=== PATIENT | male | born 1990 | race American Indian/Alaskan Native ===

== ENCOUNTER 2016-09-20 09:09 | Outpatient (CLI) | payer OTHER ==
[2016-09-20 09:22] LABS: Hematocrit 23.4 % (35.5-45.6); Hemoglobin 8.5 gm/dl (11.8-15.2)
== END 2016-09-20 09:10 | disposition home or self-care (01) ==
LOC: LAB 09:09
PROVIDERS: ATTEND Internal Medicine
DX: D57.1 Sickle-cell disease without crisis (principal)
CPT/HCPCS: 36415; 85014; 85018

== ENCOUNTER 2017-01-25 04:23 | Inpatient (IN) | payer MEDICAID, OTHER ==
[2017-01-25] MEDS ORDERED: D5NS 0.2% 1,000 ML IV SCH (06:00)
[2017-01-25] MEDS ORDERED: DUONEB 0.5 MG-3 MG/3 ML SOLN IH ONE (06:04)
[2017-01-25 06:18] LABS: Hematocrit 25.5 % (35.5-45.6); Hemoglobin 9.1 gm/dl (11.8-15.2); Mean Corpuscular HGB Conc 36 % (32-34); Mean Corpuscular Hemoglobin 32 pg (28-32); Mean Corpuscular Volume 91 fl (84-94); Platelet Count 272 K/mm3 (140-440); Reticulocyte % 16.59 % (0.78-2.58); White Blood Count 12.9 K/mm3 (4.5-11.0)
[2017-01-25 06:19] LABS: Red Cell Distribution Width 28.7 % (13.2-15.2)
[2017-01-25 06:27] LABS: Anion Gap 19 mmol/L; BUN/Creatinine Ratio 11.66; Blood Urea Nitrogen 7 mg/dL (9-20); Calcium 8.9 mg/dL (8.4-10.2); Carbon Dioxide 20 mmol/L (22-30); Chloride 103.6 mmol/L (98-107); Glucose 96 mg/dL (75-100); Potassium 4.8 mmol/L (3.6-5.0); Sodium 138 mmol/L (137-145)
[2017-01-25 06:56] LABS: Basophils % (Manual) 0 % (0.0-1.8); Blastocytes % (Manual) 0 %; Sickle Cells 3+
[2017-01-25 06:57] LABS: Polychromasia 1+; Target Cells 1+
[2017-01-25 06:58] LABS: Diff Status Complete; Platelet Estimate Consistent w Auto; Spherocytes Few; Stomatocytes 1+
[2017-01-25] MEDS ORDERED: MORPHINE IV ONE (07:10)
--- NOTE | 2017-01-25 07:22 | Emergency Department Report ---
HPI - General Chief Complaint: Sickle Cell Crisis Time Seen by Provider: 01/25/17 07:06 - HPI HPI: This is a 26-year-old Afro-[place] male who presents to the emergency department from home with a complaint of midsternal chest pain and neck pain has been going on since about 3 PM yesterday. It is associated with some occasional shortness of breath but he denies any fever, nausea, vomiting or diaphoresis. Patient says it is similar to previous sickle cell pain crisis. 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 He is on folic acid and took a Alyssa aspirin for his discomfort without any relief. No recent travel or sick contacts at home. 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 - Surgical History Past Surgical History?: No Hx Pacemaker: No Hx Internal Defibrillator: No - Social History Smoking Status: Never Smoker - Medications Home Medications: Home Medications Medication Instructions Recorded Confirmed Last Taken Type Ibuprofen [Motrin 800 MG tab] 800 mg PO TID PRN 07/14/13 01/25/17 08/19/15 History Folic Acid [Folvite] 1 mg PO QDAY #30 tablet 04/30/16 01/25/17 1 Day Ago Rx ED Review of Systems ROS: Stated complaint: SICKLE CELL PAIN Other details as noted in HPI Comment: All other systems reviewed and negative Constitutional: denies: chills, fever Eyes: denies: eye pain, eye discharge, vision change ENT: denies: ear pain, throat pain Respiratory: shortness of breath. denies: cough Cardiovascular: chest pain. denies: palpitations Gastrointestinal: denies: abdominal pain, nausea, diarrhea Genitourinary: denies: urgency, dysuria Musculoskeletal: arthralgia, myalgia. denies: back pain Skin: denies: rash, lesions Neurological: denies: headache, weakness, paresthesias Physical Exam - Physical Exam Vital Signs: Vital Signs 01/25/17 01/25/17 01/25/17 05:13 06:05 06:11 Temperature 98.9 F Pulse Rate 94 H Pulse Rate [ 86 Right Middle Lobe] Respiratory 18 24 Rate Respiratory 18 Rate [Right Middle Lobe] Blood Pressure 148/105 Blood Pressure [Left] O2 Sat by Pulse 100 93 Oximetry 01/25/17 01/25/17 01/25/17 06:46 06:50 06:59 Temperature Pulse Rate 87 89 92 H Pulse Rate [ Right Middle Lobe] Respiratory 14 25 H 22 Rate Respiratory Rate [Right Middle Lobe] Blood Pressure 153/84 Blood Pressure 153/84 [Left] O2 Sat by Pulse 97 98 98 Oximetry Physical Exam: GENERAL: The patient is well-developed well-nourished. Patient appears uncomfortable. HEENT: Normocephalic. Atraumatic. Extraocular motions are intact. Patient has moist mucous membranes. Pupils equal reactive to light bilaterally. NECK: Supple. Trachea is midline. CHEST/LUNGS: Clear to auscultation. There is no respiratory distress noted. HEART/CARDIOVASCULAR: Regular. There is no tachycardia. There is no gallop rub or murmur. ABDOMEN: Abdomen is soft, nontender. Patient has normal bowel sounds. There is no abdominal distention. SKIN: Skin is warm and dry. NEURO: The patient is awake, alert, and oriented. The patient is cooperative. The patient has no focal neurologic deficits. The patient has normal speech. MUSCULOSKELETAL: There is no tenderness or deformity. There is no limitation range of motion. There is no evidence of acute injury. ED Course Vital Signs 01/25/17 01/25/17 01/25/17 05:13 06:05 06:11 Temperature 98.9 F Pulse Rate 94 H Pulse Rate [ 86 Right Middle Lobe] Respiratory 18 24 Rate Respiratory 18 Rate [Right Middle Lobe] Blood Pressure 148/105 Blood Pressure [Left] O2 Sat by Pulse 100 93 Oximetry 01/25/17 01/25/17 01/25/17 06:46 06:50 06:59 Temperature Pulse Rate 87 89 92 H Pulse Rate [ Right Middle Lobe] Respiratory 14 25 H 22 Rate Respiratory Rate [Right Middle Lobe] Blood Pressure 153/84 Blood Pressure 153/84 [Left] O2 Sat by Pulse 97 98 98 Oximetry ED Medical Decision Making - Lab Data Result diagrams: 01/25/17 05:23 01/25/17 05:23 - EKG Data -: EKG Interpreted by Id EKG shows normal: sinus rhythm, axis, intervals, QRS complexes, ST-T waves (T- wave inversion to the lateral leads V5 and V6) Rate: normal - EKG Data When compared to previous EKG there are: previous EKG unavailable Interpretation: other (T-wave inversion to the lateral leads V5 and V6) - Radiology Data Radiology results: report reviewed, image reviewed interpreted by me: Chest x-ray did not show any acute process. Heart is normal shape and size. No effusions. No pneumothorax. No signs of pneumonia seen. CT angiography of the chest does not show any pulmonary embolism or any other acute process. - Medical Decision Making 26-year-old male with sickle cell anemia presents with chest pain and neck pain that he feels is consistent with previous pain crisis. EKG does not show any signs of ST elevation GA or dysrhythmia. Patient so far had a negative troponin. He did have a quite elevated d-dimer so a CT angiography of the chest was done that did not show any pulmonary embolism or acute process. Patient is given some IV fluid and a few rounds of pain medication and is feeling improved but his chest pain has not resolved. On top of that, the patient appears to display some hypoxia going down into the low 90s or high 80s. He was given some oxygen via nasal cannula which did help. As there are no infiltrates on chest x-ray, the patient does not appear to have a chest crisis. However he will need admission for further evaluation and treatment has been accepted for admission by the hospitalist, Dr Baptiste. - Differential Diagnosis sickle cell pain crisis, chest crisis, pneumonia, GA, CHF, costochondritis Critical Care Time: No Critical care attestation.: If time is entered above; I have spent that time in minutes in the direct care of this critically ill patient, excluding procedure time. ED Disposition Clinical Impression: Sickle cell pain crisis Chest pain Qualifiers: Chest pain type: chest pain on breathing Qualified Code(s): R07.1 - Chest pain on breathing Disposition: OP ADMITTED IP TO THIS HOSP Is pt being admited?: Yes Does the pt Need Aspirin: Yes Condition: Stable Time of Disposition: 12:19
[2017-01-25] MEDS ORDERED: DILAUDID IV ONE (08:01)
[2017-01-25] MEDS ORDERED: NACL ONE (08:08)
--- NOTE | 2017-01-25 08:53 | Cat Scan Report ---
CTA CHEST: History: Chest pain, elevated d-dimer. Technique: Helical CT following IV contrast. Pulmonary embolus protocol. Sagittal and coronal reformatted images. Rotational MIP images. Findings: Contrast bolus is slightly limited. There is pleural calcification of the distal, small pulmonary arteries. Having said that, no pulmonary arterial filling defect is identified. There is certainly no large central pulmonary embolus. Mild cardiomegaly is evident. There is mild pulmonary venous congestion with mild cephalization of pulmonary flow. No evidence for pleural effusion, infiltrate or pneumothorax. The thyroid gland, tracheobronchial tree, esophagus, pericardium, aorta and bony thorax are unremarkable. Impression: No pulmonary embolus is identified. Mild cardiomegaly and pulmonary venous congestion but no CHF.
--- NOTE | 2017-01-25 09:36 | Admit Criteria Form ---
Admission Criteria Documentation: SICKLE CELL DISEASE Clinical Indications for Admission to Inpatient Care (Place 'X' for any and all applicable criteria): Admission is indicated for ANY ONE of the following(1)(2)(3)(4)(5): [X]I. Inpatient admission required rather than observation care because of ANY ONE of the following: [ ]a) Altered mental status [ ]b) High fever or infection requiring inpatient admission as indicated by ANY ONE of the following: [ ]A. Appropriate outpatient observation care antimicrobial treatment unavailable, not effective, or not appropriate for infection [ ]B. Documented bacteremia [ ]C. Temp >104.9F (40.5C) (oral) [ ]D. Temp >103.1F (oral) or <96.8F(rectal) that does not respond to all emergency treatment measures [ ]c) Supplemental O2 or respiratory therapy for over 24 h that are performable only in acute inpatient setting [X]d) Continuous parenteral narcoticsother major pain intervention for >24 h performable only in acute inpatient setting. [ ]e) Exchange transfusion [ ]f) Other condition, treatment or monitoring requiring inpatient admission []II. Acute chest syndrome indicated by ALL of the following (10): [ ]a) New alveolar infiltrate involving at least one lung segment []b) Associated pulmonary symptoms or findings as indicated by ANY ONE of the following: [X]i) Chest pain [ ]ii) Hypoxemia [ ]iii) Tachypnea/dyspnea [ ]iv) Wheezing [ ]v) Cough [ ]vi) Sputum production [ ]III. Significant hypoxemia or acidosis (more severe than baseline) [ ]IV. Emergent surgery needed (eg, acute cholecystitis) [ ]V. -related complication(11) [ ]. Splenic or hepatic sequestration(12) [ ]VII. Aplastic crisis [ ]VIII. Priapism or other vascular complication(13) [ ]IX. Traumatic hyphema [A](14) [ ]X. Underlying condition requiring hospitalization (eg, osteomyelitis) [ ]XI. Signs or symptoms of central nervous system injury indicated by ANY ONE of the following: [ ]a) Stroke(9) [ ]b) Seizure [ ]c) Other significant central nervous system symptom or event [ ]XII. Acute renal failure Extended stay beyond goal length of stay may be needed for: [ ]a) Inadequate pain control [ ]b) Acute chest syndrome [ ]c) Sequestration or aplastic crisis (12) [ ]d) Pneumonia and asthma exacerbation [ ]e) Neurologic or vascular complications (25) [ ]f) Infection (eg, osteomyelitis) that requires ongoing treatment) The original [facility] [employer] content created by [facility] has been revised. The portions of the content which have been revised are identified through the use of italic text or in bold, and [facility] has neither reviewed nor approved the modified material. All other unmodified content is copyright [facility]. Please see references footnoted in the original [facility] [employer] edition 2016 Admission Criteria Met: Yes
[2017-01-25] MEDS ORDERED: MORPHINE IV PRN (10:33)
[2017-01-25] MEDS ORDERED: ZOFRAN IV PRN (10:33)
[2017-01-25] MEDS ORDERED: TYLENOL PO PRN (10:33)
[2017-01-25] MEDS ORDERED: MILK OF MAGNESIA PO PRN (10:33)
[2017-01-25] MEDS ORDERED: DULCOLAX PR PRN (10:33)
--- NOTE | 2017-01-25 10:33 | History and Physical Report ---
History of Present Illness Chief complaint: I am having sickle cell crisis pains History of present illness: 26-year-old man with a past medical history of sickle cell, history of acute chest syndrome for which he was admitted in 2015. He presented one day of pain. He states that the pain is in his chest and his neck. The pain is 10 out of 10 at worst, currently 8 out of 10 as he does some pain medications. He describes it as stabbing in nature, exacerbated by movements. He tried taking his pain medications at home with minimal relief and to come in to the hospital. He denies fever or denies dysuria and denies chills. 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. He denies cough, sob, or palpitations, states that this pain is cw his sickle cell crisis. . Past History Past Medical History: other (sickle cell disease, hx of acute chest syndrome in 04/2016) Past Surgical History: No surgical history Social history: no significant social history Family history: other (sickle cell trait) Medications and Allergies Allergies Allergy/AdvReac Type Severity Reaction Status Date / Time No Known Allergies Allergy Verified 08/20/15 06:08 Home Medications Medication Instructions Recorded Confirmed Last Taken Type Ibuprofen [Motrin 800 MG tab] 800 mg PO TID PRN 07/14/13 01/25/17 08/19/15 History Folic Acid [Folvite] 1 mg PO QDAY #30 tablet 04/30/16 01/25/17 1 Day Ago Rx Active Meds: Active Medications Dextrose/Sodium Chloride (D5ns 0.2%) 1,000 mls @ 250 mls/hr IV DIRECT HAN Last Admin: 01/25/17 07:06 Dose: 250 mls/hr Review of Systems All systems: negative Constitutional: fatigue, weakness, no fever Exam - Constitutional Vitals: Temp Pulse Resp BP Pulse Ox 98.9 F 94 H 21 135/71 96 01/25/17 05:13 01/25/17 08:36 01/25/17 08:47 01/25/17 08:36 01/25/17 08:47 General appearance: Present: mild distress, well-nourished - EENT Eyes: Present: PERRL ENT: hearing intact, clear oral mucosa - Neck Neck: Present: supple, normal ROM - Respiratory Respiratory effort: normal Respiratory: bilateral: CTA - Cardiovascular Heart Sounds: Present: S1 & S2. Absent: rub, click - Extremities Extremities: pulses symmetrical, No edema Peripheral Pulses: within normal limits - Abdominal General gastrointestinal: Present: soft, non-tender, non-distended, normal bowel sounds Male genitourinary: Present: normal - Integumentary Integumentary: Present: clear, warm, dry - Musculoskeletal Musculoskeletal: gait normal, strength equal bilaterally - Psychiatric Psychiatric: appropriate mood/affect, intact judgment & insight - Neurologic Neurologic: CNII-XII intact, moves all extremities Results - Labs CBC & Chem 7: 01/26/17 04:36 01/26/17 04:36 Labs: Laboratory Last Values WBC 12.9 K/mm3 (4.5-11.0) H 01/25/17 05:23 RBC 2.80 M/mm3 (3.65-5.03) L 01/25/17 05:23 Hgb 9.1 gm/dl (11.8-15.2) L 01/25/17 05:23 Hct 25.5 % (35.5-45.6) L 01/25/17 05:23 MCV 91 fl (84-94) 01/25/17 05:23 MCH 32 pg (28-32) 01/25/17 05:23 MCHC 36 % (32-34) H 01/25/17 05:23 RDW 28.7 % (13.2-15.2) H 01/25/17 05:23 Plt Count 272 K/mm3 (140-440) 01/25/17 05:23 Add Manual Diff Complete 01/25/17 05:23 Total Counted 100 01/25/17 05:23 Seg Neuts % (Manual) 63.0 % (40.0-70.0) 01/25/17 05:23 Band Neutrophils % 2.0 % 01/25/17 05:23 Lymphocytes % (Manual) 25.0 % (13.4-35.0) 01/25/17 05:23 Reactive Lymphs % (Man) 1.0 % 01/25/17 05:23 Monocytes % (Manual) 7.0 % (0.0-7.3) 01/25/17 05:23 Eosinophils % (Manual) 2.0 % (0.0-4.3) 01/25/17 05:23 Basophils % (Manual) 0 % (0.0-1.8) 01/25/17 05:23 Metamyelocytes % 0 % 01/25/17 05:23 Myelocytes % 0 % 01/25/17 05:23 Promyelocytes % 0 % 01/25/17 05:23 Blast Cells % 0 % 01/25/17 05:23 Nucleated RBC % 8.0 % (0.0-0.9) H 01/25/17 05:23 Seg Neutrophils # Man 8.1 K/mm3 (1.8-7.7) H 01/25/17 05:23 Band Neutrophils # 0.3 K/mm3 01/25/17 05:23 Lymphocytes # (Manual) 3.2 K/mm3 (1.2-5.4) 01/25/17 05:23 Abs React Lymphs (Man) 0.1 K/mm3 01/25/17 05:23 Monocytes # (Manual) 0.9 K/mm3 (0.0-0.8) H 01/25/17 05:23 Eosinophils # (Manual) 0.3 K/mm3 (0.0-0.4) 01/25/17 05:23 Basophils # (Manual) 0.0 K/mm3 (0.0-0.1) 01/25/17 05:23 Metamyelocytes # 0.0 K/mm3 01/25/17 05:23 Myelocytes # 0.0 K/mm3 01/25/17 05:23 Promyelocytes # 0.0 K/mm3 01/25/17 05:23 Blast Cells # 0.0 K/mm3 01/25/17 05:23 WBC Morphology Not Reportable 01/25/17 05:23 Hypersegmented Neuts Not Reportable 01/25/17 05:23 Hyposegmented Neuts Not Reportable 01/25/17 05:23 Hypogranular Neuts Not Reportable 01/25/17 05:23 Smudge Cells Not Reportable 01/25/17 05:23 Toxic Granulation Not Reportable 01/25/17 05:23 Toxic Vacuolation Not Reportable 01/25/17 05:23 Dohle Bodies Not Reportable 01/25/17 05:23 Pelger-Huet Anomaly Not Reportable 01/25/17 05:23 Ferny Rods Not Reportable 01/25/17 05:23 Platelet Estimate Consistent w auto 01/25/17 05:23 Clumped Platelets Not Reportable 01/25/17 05:23 Plt Clumps, EDTA Not Reportable 01/25/17 05:23 Large Platelets Not Reportable 01/25/17 05:23 Giant Platelets Not Reportable 01/25/17 05:23 Platelet Satelliting Not Reportable 01/25/17 05:23 Plt Morphology Comment Not Reportable 01/25/17 05:23 RBC Morphology Not Reportable 01/25/17 05:23 Dimorphic RBCs Not Reportable 01/25/17 05:23 Polychromasia 1+ 01/25/17 05:23 Hypochromasia Not Reportable 01/25/17 05:23 Poikilocytosis Not Reportable 01/25/17 05:23 Anisocytosis Not Reportable 01/25/17 05:23 Microcytosis Not Reportable 01/25/17 05:23 Macrocytosis Not Reportable 01/25/17 05:23 Spherocytes Few 01/25/17 05:23 Pappenheimer Bodies Not Reportable 01/25/17 05:23 Sickle Cells 3+ 01/25/17 05:23 Target Cells 1+ 01/25/17 05:23 Tear Drop Cells Not Reportable 01/25/17 05:23 Ovalocytes Not Reportable 01/25/17 05:23 Stomatocytes 1+ 01/25/17 05:23 Helmet Cells Not Reportable 01/25/17 05:23 Lozano-[place] Bodies Not Reportable 01/25/17 05:23 [place] Rings Not Reportable 01/25/17 05:23 Jennifer Cells Not Reportable 01/25/17 05:23 Bite Cells Not Reportable 01/25/17 05:23 Crenated Cell Not Reportable 01/25/17 05:23 Elliptocytes Not Reportable 01/25/17 05:23 Acanthocytes (Spur) Not Reportable 01/25/17 05:23 Rouleaux Not Reportable 01/25/17 05:23 Hemoglobin C Crystals Not Reportable 01/25/17 05:23 Schistocytes Not Reportable 01/25/17 05:23 Malaria parasites Not Reportable 01/25/17 05:23 Percent Retic 16.59 % (0.78-2.58) H 01/25/17 05:23 Gian Bodies Not Reportable 01/25/17 05:23 Hem Pathologist Commnt No 01/25/17 05:23 D-Dimer 1344.10 ng/mlDDU (0-234) H 01/25/17 07:22 Sodium 138 mmol/L (137-145) 01/25/17 05:23 Potassium 4.8 mmol/L (3.6-5.0) 01/25/17 05:23 Chloride 103.6 mmol/L (98-107) 01/25/17 05:23 Carbon Dioxide 20 mmol/L (22-30) L 01/25/17 05:23 Anion Gap 19 mmol/L 01/25/17 05:23 BUN 7 mg/dL (9-20) L 01/25/17 05:23 Creatinine 0.6 mg/dL (0.8-1.5) L 01/25/17 05:23 Estimated GFR > 60 ml/min 01/25/17 05:23 BUN/Creatinine Ratio 11.66 % 01/25/17 05:23 Glucose 96 mg/dL (75-100) 01/25/17 05:23 Calcium 8.9 mg/dL (8.4-10.2) 01/25/17 05:23 Troponin T < 0.010 ng/mL (0.00-0.029) 01/25/17 07:22 - Imaging and Cardiology CT scan - chest: image reviewed (no PE, no infiltrate) Assessment and Plan Assessment and plan: 26M who presented with sickle cell pain crisis 1. Sickle cell pain crisis pain meds, analgesics, hematology consult, serial cbc Chest imaging negative for infiltrate so therefore not consistent with acute chest syndrome 2. Acute hypoxic respiratory failure Most likely due to shallow breathing due to pain, continue oxygen supplementation 3. Hemolytic anemia Monitor hemoglobin, judicious transfusion as needed 4. Hemolytic prophylaxis Lovenox Plan of care discussed with patient/family: Yes
[2017-01-25] MEDS ORDERED: MORPHINE ONE (11:25)
[2017-01-25] MEDS: LOVENOX SUB-Q SCH (13:50)
[2017-01-25] MEDS: D5/0.45NS 1,000 ML IV SCH (13:50)
[2017-01-25] MEDS: DILAUDID IV PRN ×3 (15:10→23:09)
--- NOTE | 2017-01-26 00:35 | Consultation ---
History of Present Illness - Reason for Consult Consult date: 01/25/17 SCD/anemia. Requesting physician: ARMEN RAMOS - History of Present Illness Thank you for this consult, patient seen/examined, record reviewed.Patient presented to the Er with diffuse joint pain. He is very non compliant with office follow up. He is admitted for sxs management.I have d/w him and his mom. Past History Social history: single Family history: no significant family history Medications and Allergies Allergies Allergy/AdvReac Type Severity Reaction Status Date / Time No Known Allergies Allergy Verified 08/20/15 06:08 Home Medications Medication Instructions Recorded Confirmed Last Taken Type Ibuprofen [Motrin 800 MG tab] 800 mg PO TID PRN 07/14/13 01/25/17 08/19/15 History Folic Acid [Folvite] 1 mg PO QDAY #30 tablet 04/30/16 01/25/17 1 Day Ago Rx Active Meds: Active Medications Acetaminophen (Tylenol) 650 mg PO Q4H PRN PRN Reason: Pain MILD(1-3)/Fever >100.5/GERMAN Bisacodyl (Dulcolax) 10 mg SC QDAY PRN PRN Reason: Constipation unrelieved by MOM Enoxaparin Sodium (Lovenox) 40 mg SUB-Q QDAY HAN Last Admin: 01/25/17 13:50 Dose: 40 mg Hydromorphone HCl (Dilaudid) 1 mg IV Q4H PRN PRN Reason: Pain , Severe (7-10) Last Admin: 01/25/17 23:09 Dose: 1 mg Dextrose/Sodium Chloride (D5/0.45ns) 1,000 mls @ 42 mls/hr IV DIRECT HAN Last Admin: 01/25/17 13:50 Dose: 42 mls/hr Magnesium Hydroxide (Milk Of Magnesia) 30 ml PO Q4H PRN PRN Reason: Constipation Ondansetron HCl (Zofran) 4 mg IV Q8H PRN PRN Reason: N/V unrelieved by Reglan Exam - Constitutional Vitals: Temp Pulse Resp BP Pulse Ox 98.2 F 90 20 120/86 100 01/25/17 20:35 01/25/17 23:51 01/25/17 20:35 01/25/17 20:35 01/25/17 20:35 General appearance: Present: mild distress, well-nourished - EENT Eyes: Present: PERRL ENT: hearing intact, clear oral mucosa - Neck Neck: Present: supple, normal ROM - Respiratory Respiratory: bilateral: CTA - Cardiovascular Heart Sounds: Present: S1 & S2. Absent: rub, click - Extremities Extremities: pulses symmetrical, No edema Peripheral Pulses: within normal limits - Abdominal General gastrointestinal: Present: soft, non-tender, non-distended, normal bowel sounds Male genitourinary: Present: deferred - Rectal Rectal Exam: deferred - Integumentary Integumentary: Present: clear, warm, dry - Musculoskeletal Musculoskeletal: gait normal, strength equal bilaterally - Psychiatric Psychiatric: appropriate mood/affect, intact judgment & insight - Neurologic Neurologic: CNII-XII intact, moves all extremities Results - Labs CBC & Chem 7: 01/25/17 05:23 01/25/17 05:23 Assessment and Plan - Patient Problems (1) Sickle cell pain crisis Current Visit: Yes Status: Chronic Plan to address problem: pain control (2) Sickle cell anemia Current Visit: Yes Status: Acute Qualifiers: Sickle-cell associated disorders: S Plan to address problem: Monitor/adjust labs.
[2017-01-26] MEDS ORDERED: BENADRYL IV PRN (00:42)
[2017-01-26 01:58] LABS: Anion Gap 18 mmol/L; BUN/Creatinine Ratio 8.33; Blood Urea Nitrogen 5 mg/dL (9-20); Calcium 8.9 mg/dL (8.4-10.2); Carbon Dioxide 23 mmol/L (22-30); Chloride 98.5 mmol/L (98-107); Glucose 101 mg/dL (75-100); Potassium 4.1 mmol/L (3.6-5.0); Sodium 135 mmol/L (137-145)
[2017-01-26 02:43] LABS: Hematocrit 25.1 % (35.5-45.6); Hemoglobin 8.8 gm/dl (11.8-15.2); Mean Corpuscular HGB Conc 35 % (32-34); Mean Corpuscular Hemoglobin 32 pg (28-32); Mean Corpuscular Volume 91 fl (84-94); Platelet Count 232 K/mm3 (140-440); Red Blood Count 2.75 M/mm3 (3.65-5.03); Reticulocyte % 14.14 % (0.78-2.58); White Blood Count 11.7 K/mm3 (4.5-11.0)
[2017-01-26] MEDS: DILAUDID IV PRN ×5 (03:10→19:54)
[2017-01-26 04:35] LABS: Basophils % (Manual) 0 % (0.0-1.8); Blastocytes % (Manual) 0 %; Sickle Cells 3+
[2017-01-26 04:36] LABS: Polychromasia Few; Target Cells 1+
[2017-01-26 04:38] LABS: Platelet Estimate Consistent w Auto
[2017-01-26 04:39] LABS: Diff Status Complete; Spherocytes Few
[2017-01-26 05:39] LABS: Anion Gap 18 mmol/L; Blood Urea Nitrogen 5 mg/dL (9-20); Calcium 8.7 mg/dL (8.4-10.2); Carbon Dioxide 22 mmol/L (22-30); Chloride 100.5 mmol/L (98-107); Glucose 96 mg/dL (75-100); Potassium 3.9 mmol/L (3.6-5.0); Sodium 137 mmol/L (137-145)
[2017-01-26 06:29] LABS: Hematocrit 38.2 % (35.5-45.6); Hemoglobin 13.1 gm/dl (11.8-15.2); Mean Corpuscular HGB Conc 34 % (32-34); Mean Corpuscular Hemoglobin 32 pg (28-32); Mean Corpuscular Volume 93 fl (84-94); Platelet Count 136 K/mm3 (140-440); Red Blood Count 4.12 M/mm3 (3.65-5.03); White Blood Count 10.5 K/mm3 (4.5-11.0)
[2017-01-26 06:30] LABS: Reticulocyte % 11.12 % (0.78-2.58)
[2017-01-26 06:48] LABS: Red Cell Distribution Width 25.7 % (13.2-15.2)
[2017-01-26 07:22] LABS: Basophils % (Manual) 0 % (0.0-1.8); Blastocytes % (Manual) 0 %; Sickle Cells 3+
[2017-01-26 07:23] LABS: Diff Status Complete; Platelet Estimate Appears Decreased; Polychromasia Few; Stomatocytes Few; Target Cells 1+
--- NOTE | 2017-01-26 09:08 | Progress Note ---
Assessment and Plan Assessment and plan: 26M who presented with sickle cell pain crisis 1. Sickle cell pain crisis pain meds, analgesics, hematology consult appreciated, serial cbc CTA on 01/25 neg for PE Chest imaging negative for infiltrate so therefore not consistent with acute chest syndrome 2. Acute hypoxic respiratory failure Most likely due to shallow breathing due to pain, continue oxygen supplementation 3. Hemolytic anemia Monitor hemoglobin, judicious transfusion as needed 4. Hemolytic prophylaxis Lovenox History Interval history: body pains are slightly improved, c/o pain in chest, back, cw pain crisis, 8/10 , worse with movement and deep breathing Hospitalist Physical - Physical exam Narrative exam: General: Nontoxic appearance HEENT: MMM, EOMI cardiac: S1-S2 heard lungs: clear to auscultation, abdomen: soft, nontender, nondistended bowel sounds positive extremities: no edema clubbing or cyanosis Skin: no rash or lesion Neuro: no focal deficit Psych: appropriate behavior and mood, cognition intact - Constitutional Vitals: Temp Pulse Resp BP Pulse Ox 97.6 F 70 20 114/56 97 01/26/17 07:37 01/26/17 08:15 01/26/17 07:37 01/26/17 07:37 01/26/17 07:37 General appearance: Present: mild distress, well-nourished Results - Labs CBC & Chem 7: 01/26/17 04:36 01/26/17 04:36 Labs: Laboratory Last Values WBC 10.5 K/mm3 (4.5-11.0) 01/26/17 04:36 RBC 4.12 M/mm3 (3.65-5.03) 01/26/17 04:36 Hgb 13.1 gm/dl (11.8-15.2) D 01/26/17 04:36 Hct 38.2 % (35.5-45.6) D 01/26/17 04:36 MCV 93 fl (84-94) 01/26/17 04:36 MCH 32 pg (28-32) 01/26/17 04:36 MCHC 34 % (32-34) 01/26/17 04:36 RDW 25.7 % (13.2-15.2) H 01/26/17 04:36 Plt Count 136 K/mm3 (140-440) L 01/26/17 04:36 Add Manual Diff Complete 01/26/17 04:36 Total Counted 100 01/26/17 04:36 Seg Neuts % (Manual) 64.0 % (40.0-70.0) 01/26/17 04:36 Band Neutrophils % 0 % 01/26/17 04:36 Lymphocytes % (Manual) 23.0 % (13.4-35.0) 01/26/17 04:36 Reactive Lymphs % (Man) 0 % 01/26/17 04:36 Monocytes % (Manual) 9.0 % (0.0-7.3) H 01/26/17 04:36 Eosinophils % (Manual) 4.0 % (0.0-4.3) 01/26/17 04:36 Basophils % (Manual) 0 % (0.0-1.8) 01/26/17 04:36 Metamyelocytes % 0 % 01/26/17 04:36 Myelocytes % 0 % 01/26/17 04:36 Promyelocytes % 0 % 01/26/17 04:36 Blast Cells % 0 % 01/26/17 04:36 Nucleated RBC % 2.0 % (0.0-0.9) H 01/26/17 04:36 Seg Neutrophils # Man 6.7 K/mm3 (1.8-7.7) 01/26/17 04:36 Band Neutrophils # 0.0 K/mm3 01/26/17 04:36 Lymphocytes # (Manual) 2.4 K/mm3 (1.2-5.4) 01/26/17 04:36 Abs React Lymphs (Man) 0.0 K/mm3 01/26/17 04:36 Monocytes # (Manual) 0.9 K/mm3 (0.0-0.8) H 01/26/17 04:36 Eosinophils # (Manual) 0.4 K/mm3 (0.0-0.4) 01/26/17 04:36 Basophils # (Manual) 0.0 K/mm3 (0.0-0.1) 01/26/17 04:36 Metamyelocytes # 0.0 K/mm3 01/26/17 04:36 Myelocytes # 0.0 K/mm3 01/26/17 04:36 Promyelocytes # 0.0 K/mm3 01/26/17 04:36 Blast Cells # 0.0 K/mm3 01/26/17 04:36 WBC Morphology Not Reportable 01/26/17 04:36 Hypersegmented Neuts Not Reportable 01/26/17 04:36 Hyposegmented Neuts Not Reportable 01/26/17 04:36 Hypogranular Neuts Not Reportable 01/26/17 04:36 Smudge Cells Not Reportable 01/26/17 04:36 Toxic Granulation Not Reportable 01/26/17 04:36 Toxic Vacuolation Not Reportable 01/26/17 04:36 Dohle Bodies Not Reportable 01/26/17 04:36 Pelger-Huet Anomaly Not Reportable 01/26/17 04:36 Ferny Rods Not Reportable 01/26/17 04:36 Platelet Estimate Appears decreased 01/26/17 04:36 Clumped Platelets Not Reportable 01/26/17 04:36 Plt Clumps, EDTA Not Reportable 01/26/17 04:36 Large Platelets Not Reportable 01/26/17 04:36 Giant Platelets Not Reportable 01/26/17 04:36 Platelet Satelliting Not Reportable 01/26/17 04:36 Plt Morphology Comment Not Reportable 01/26/17 04:36 RBC Morphology Not Reportable 01/26/17 04:36 Dimorphic RBCs Not Reportable 01/26/17 04:36 Polychromasia Few 01/26/17 04:36 Hypochromasia Not Reportable 01/26/17 04:36 Poikilocytosis Not Reportable 01/26/17 04:36 Anisocytosis Not Reportable 01/26/17 04:36 Microcytosis Not Reportable 01/26/17 04:36 Macrocytosis Not Reportable 01/26/17 04:36 Spherocytes Not Reportable 01/26/17 04:36 Pappenheimer Bodies Not Reportable 01/26/17 04:36 Sickle Cells 3+ 01/26/17 04:36 Target Cells 1+ 01/26/17 04:36 Tear Drop Cells Not Reportable 01/26/17 04:36 Ovalocytes Not Reportable 01/26/17 04:36 Stomatocytes Few 01/26/17 04:36 Helmet Cells Not Reportable 01/26/17 04:36 [place]oz[place] Bodies Not Reportable 01/26/17 04:36 [place] Rings Not Reportable 01/26/17 04:36 [place] Cells Not Reportable 01/26/17 04:36 Bite Cells Not Reportable 01/26/17 04:36 Crenated Cell Not Reportable 01/26/17 04:36 Elliptocytes Not Reportable 01/26/17 04:36 Acanthocytes (Spur) Not Reportable 01/26/17 04:36 Rouleaux Not Reportable 01/26/17 04:36 Hemoglobin C Crystals Not Reportable 01/26/17 04:36 Schistocytes Not Reportable 01/26/17 04:36 Malaria parasites Not Reportable 01/26/17 04:36 Percent Retic 11.12 % (0.78-2.58) H 01/26/17 04:36 Gian Bodies Not Reportable 01/26/17 04:36 Hem Pathologist Commnt No 01/26/17 04:36 D-Dimer 1344.10 ng/mlDDU (0-234) H 01/25/17 07:22 Sodium 137 mmol/L (137-145) 01/26/17 04:36 Potassium 3.9 mmol/L (3.6-5.0) 01/26/17 04:36 Chloride 100.5 mmol/L (98-107) 01/26/17 04:36 Carbon Dioxide 22 mmol/L (22-30) 01/26/17 04:36 Anion Gap 18 mmol/L 01/26/17 04:36 BUN 5 mg/dL (9-20) L 01/26/17 04:36 Creatinine 0.5 mg/dL (0.8-1.5) L 01/26/17 04:36 Estimated GFR > 60 ml/min 01/26/17 04:36 BUN/Creatinine Ratio 10.00 % 01/26/17 04:36 Glucose 96 mg/dL (75-100) 01/26/17 04:36 Calcium 8.7 mg/dL (8.4-10.2) 01/26/17 04:36 Troponin T < 0.010 ng/mL (0.00-0.029) 01/25/17 13:32
[2017-01-26] MEDS: LOVENOX SUB-Q SCH (09:57)
--- NOTE | 2017-01-26 14:05 | XRay Report ---
AP CHEST: HISTORY: chest pain AP view of the chest demonstrates a normal mediastinal and cardiac contour with clear lungs and normal bony and soft tissue structures. IMPRESSION: No acute cardiopulmonary process identified.
[2017-01-26] MEDS: D5/0.45NS 1,000 ML IV SCH (14:59)
[2017-01-26] MEDS: BENADRYL PO PRN (19:59)
--- NOTE | 2017-01-26 22:25 | Consultation ---
History of Present Illness - Reason for Consult Consult date: 01/26/17 - History of Present Illness Patient seen and examined. Resting comfortably in bed. No new issues. Labs reviewed and case discussed with patient. His IV fluid is going at 42 ml/h , which is extremely slow for this pt. Therefore, we will adjust to a higher rate to speed up recovery. Past History Past Medical History: other (sickle cell disease, hx of acute chest syndrome in 04/2016) Past Surgical History: No surgical history Social history: no significant social history Family history: other (sickle cell trait) Medications and Allergies Allergies Allergy/AdvReac Type Severity Reaction Status Date / Time No Known Allergies Allergy Verified 08/20/15 06:08 Home Medications Medication Instructions Recorded Confirmed Last Taken Type Ibuprofen [Motrin 800 MG tab] 800 mg PO TID PRN 07/14/13 01/25/17 08/19/15 History Folic Acid [Folvite] 1 mg PO QDAY #30 tablet 04/30/16 01/25/17 1 Day Ago Rx Active Meds: Active Medications Acetaminophen (Tylenol) 650 mg PO Q4H PRN PRN Reason: Pain MILD(1-3)/Fever >100.5/GERMAN Last Admin: 01/26/17 01:42 Dose: 650 mg Bisacodyl (Dulcolax) 10 mg GA QDAY PRN PRN Reason: Constipation unrelieved by MOM Diphenhydramine HCl (Benadryl) 25 mg PO Q6H PRN PRN Reason: Itching Last Admin: 01/26/17 19:59 Dose: 25 mg Enoxaparin Sodium (Lovenox) 40 mg SUB-Q QDAY HNA Last Admin: 01/26/17 09:57 Dose: 40 mg Hydromorphone HCl (Dilaudid) 2 mg IV Q3H PRN PRN Reason: Pain , Severe (7-10) Last Admin: 01/26/17 19:54 Dose: 2 mg Dextrose/Sodium Chloride (D5/0.45ns) 1,000 mls @ 42 mls/hr IV DIRECT HAN Last Admin: 01/26/17 14:59 Dose: 42 mls/hr Magnesium Hydroxide (Milk Of Magnesia) 30 ml PO Q4H PRN PRN Reason: Constipation Ondansetron HCl (Zofran) 4 mg IV Q8H PRN PRN Reason: N/V unrelieved by Reglan Review of Systems Constitutional: chronic pain Respiratory: shortness of breath Musculoskeletal: low back pain Exam - Constitutional Vitals: Temp Pulse Resp BP Pulse Ox 100.0 F H 90 18 128/76 98 01/26/17 20:15 01/26/17 20:15 01/26/17 20:15 01/26/17 20:15 01/26/17 20:15 General appearance: Present: mild distress, well-nourished - EENT Eyes: Present: PERRL ENT: hearing intact, clear oral mucosa - Neck Neck: Present: supple, normal ROM - Respiratory Respiratory: bilateral: rhonchi - Cardiovascular Heart Sounds: Present: S1 & S2. Absent: rub, click - Extremities Extremities: pulses symmetrical, No edema Peripheral Pulses: within normal limits - Abdominal General gastrointestinal: Present: soft, non-tender, non-distended, normal bowel sounds Male genitourinary: Present: deferred - Rectal Rectal Exam: deferred - Integumentary Integumentary: Present: clear, warm, dry - Musculoskeletal Musculoskeletal: gait normal, strength equal bilaterally - Psychiatric Psychiatric: appropriate mood/affect, intact judgment & insight - Neurologic Neurologic: CNII-XII intact, moves all extremities Results - Labs CBC & Chem 7: 01/26/17 04:36 01/26/17 04:36 Labs: Abnormal lab results 01/26/17 01/26/17 01/26/17 Range/Units 01:20 01:25 04:36 WBC 11.7 H (4.5-11.0) K/mm3 RBC 2.75 L (3.65-5.03) M/mm3 Hgb 8.8 L (11.8-15.2) gm/dl Hct 25.1 L (35.5-45.6) % MCHC 35 H (32-34) % RDW 26.0 H 25.7 H (13.2-15.2) % Plt Count 136 L (140-440) K/mm3 Monocytes % (Manual) 9.0 H (0.0-7.3) % Nucleated RBC % 6.0 H 2.0 H (0.0-0.9) % Monocytes # (Manual) 0.9 H (0.0-0.8) K/mm3 Percent Retic 14.14 H (0.78-2.58) % Sodium 135 L (137-145) mmol/L BUN 5 L (9-20) mg/dL Creatinine 0.6 L (0.8-1.5) mg/dL Glucose 101 H (75-100) mg/dL 01/26/17 01/26/17 Range/Units 04:36 04:36 WBC (4.5-11.0) K/mm3 RBC (3.65-5.03) M/mm3 Hgb (11.8-15.2) gm/dl Hct (35.5-45.6) % MCHC (32-34) % RDW (13.2-15.2) % Plt Count (140-440) K/mm3 Monocytes % (Manual) (0.0-7.3) % Nucleated RBC % (0.0-0.9) % Monocytes # (Manual) (0.0-0.8) K/mm3 Percent Retic 11.12 H (0.78-2.58) % Sodium (137-145) mmol/L BUN 5 L (9-20) mg/dL Creatinine 0.5 L (0.8-1.5) mg/dL Glucose (75-100) mg/dL Assessment and Plan - Patient Problems (1) Sickle cell pain crisis Current Visit: Yes Status: Chronic Plan to address problem: pain control- same as before (2) Sickle cell anemia Current Visit: Yes Status: Acute Qualifiers: Sickle-cell associated disorders: S Plan to address problem: Monitor/adjust labs. Stable
[2017-01-27] MEDS: DILAUDID IV PRN ×7 (00:15→23:53)
[2017-01-27 02:35] LABS: Basophils % (Auto) 0.5 % (0.0-1.8); Hematocrit 24.5 % (35.5-45.6); Hemoglobin 8.6 gm/dl (11.8-15.2); Mean Corpuscular HGB Conc 35 % (32-34); Mean Corpuscular Hemoglobin 32 pg (28-32); Mean Corpuscular Volume 91 fl (84-94); Platelet Count 228 K/mm3 (140-440); Red Blood Count 2.68 M/mm3 (3.65-5.03); Reticulocyte % 8.77 % (0.78-2.58); White Blood Count 11.3 K/mm3 (4.5-11.0)
[2017-01-27 02:37] LABS: Red Cell Distribution Width 23.7 % (13.2-15.2)
[2017-01-27 02:47] LABS: BUN/Creatinine Ratio 13.33; Blood Urea Nitrogen 8 mg/dL (9-20); Calcium 8.9 mg/dL (8.4-10.2); Carbon Dioxide 24 mmol/L (22-30); Glucose 97 mg/dL (75-100)
[2017-01-27 02:48] LABS: Anion Gap 20 mmol/L; Chloride 97.1 mmol/L (98-107); Potassium 4.3 mmol/L (3.6-5.0); Sodium 137 mmol/L (137-145)
[2017-01-27] MEDS: BENADRYL PO PRN ×2 (03:19→23:54)
[2017-01-27] MEDS: D5NS 0.2% 1,000 ML IV SCH ×4 (03:19→23:54)
[2017-01-27] MEDS: LOVENOX SUB-Q SCH (09:35)
--- NOTE | 2017-01-27 14:45 | Progress Note ---
Assessment and Plan Assessment and plan: 26M who presented with sickle cell pain crisis 1. Sickle cell pain crisis pain meds, analgesics, hematology consult appreciated, serial cbc CTA on 01/25 neg for PE Chest imaging negative for infiltrate so therefore not consistent with acute chest syndrome 2. Acute hypoxic respiratory failure Most likely due to shallow breathing due to pain, continue oxygen supplementation 3. Hemolytic anemia Monitor hemoglobin, judicious transfusion as needed 4. Hemolytic prophylaxis Lovenox History Interval history: body pains are slightly improved, c/o pain in chest, back, cw pain crisis, 8/10 , worse with movement and deep breathing Hospitalist Physical - Physical exam Narrative exam: General: Nontoxic appearance HEENT: MMM, EOMI cardiac: S1-S2 heard lungs: clear to auscultation, abdomen: soft, nontender, nondistended bowel sounds positive extremities: no edema clubbing or cyanosis Skin: no rash or lesion Neuro: no focal deficit Psych: appropriate behavior and mood, cognition intact - Constitutional Vitals: Temp Pulse Resp BP Pulse Ox 98.0 F 91 H 18 134/60 91 01/27/17 08:16 01/27/17 08:16 01/27/17 08:16 01/27/17 08:16 01/27/17 08:16 General appearance: Present: mild distress, well-nourished Results - Labs CBC & Chem 7: 01/28/17 06:13 01/28/17 06:13 Labs: Laboratory Last Values WBC 11.3 K/mm3 (4.5-11.0) H 01/27/17 01:57 RBC 2.68 M/mm3 (3.65-5.03) L 01/27/17 01:57 Hgb 8.6 gm/dl (11.8-15.2) L D 01/27/17 01:57 Hct 24.5 % (35.5-45.6) L D 01/27/17 01:57 MCV 91 fl (84-94) 01/27/17 01:57 MCH 32 pg (28-32) 01/27/17 01:57 MCHC 35 % (32-34) H 01/27/17 01:57 RDW 23.7 % (13.2-15.2) H 01/27/17 01:57 Plt Count 228 K/mm3 (140-440) 01/27/17 01:57 Lymph % (Auto) 18.9 % (13.4-35.0) 01/27/17 01:57 [place] % (Auto) 13.1 % (0.0-7.3) H 01/27/17 01:57 Eos % (Auto) 2.0 % (0.0-4.3) 01/27/17 01:57 Baso % (Auto) 0.5 % (0.0-1.8) 01/27/17 01:57 Lymph # 2.1 K/mm3 (1.2-5.4) 01/27/17 01:57 [place] # 1.5 K/mm3 (0.0-0.8) H 01/27/17 01:57 Eos # 0.2 K/mm3 (0.0-0.4) 01/27/17 01:57 Baso # 0.1 K/mm3 (0.0-0.1) 01/27/17 01:57 Add Manual Diff Complete 01/26/17 04:36 Total Counted 100 01/26/17 04:36 Seg Neutrophils % 65.5 % (40.0-70.0) 01/27/17 01:57 Seg Neuts % (Manual) 64.0 % (40.0-70.0) 01/26/17 04:36 Band Neutrophils % 0 % 01/26/17 04:36 Lymphocytes % (Manual) 23.0 % (13.4-35.0) 01/26/17 04:36 Reactive Lymphs % (Man) 0 % 01/26/17 04:36 Monocytes % (Manual) 9.0 % (0.0-7.3) H 01/26/17 04:36 Eosinophils % (Manual) 4.0 % (0.0-4.3) 01/26/17 04:36 Basophils % (Manual) 0 % (0.0-1.8) 01/26/17 04:36 Metamyelocytes % 0 % 01/26/17 04:36 Myelocytes % 0 % 01/26/17 04:36 Promyelocytes % 0 % 01/26/17 04:36 Blast Cells % 0 % 01/26/17 04:36 Nucleated RBC % 2.0 % (0.0-0.9) H 01/26/17 04:36 Seg Neutrophils # 7.4 K/mm3 (1.8-7.7) 01/27/17 01:57 Seg Neutrophils # Man 6.7 K/mm3 (1.8-7.7) 01/26/17 04:36 Band Neutrophils # 0.0 K/mm3 01/26/17 04:36 Lymphocytes # (Manual) 2.4 K/mm3 (1.2-5.4) 01/26/17 04:36 Abs React Lymphs (Man) 0.0 K/mm3 01/26/17 04:36 Monocytes # (Manual) 0.9 K/mm3 (0.0-0.8) H 01/26/17 04:36 Eosinophils # (Manual) 0.4 K/mm3 (0.0-0.4) 01/26/17 04:36 Basophils # (Manual) 0.0 K/mm3 (0.0-0.1) 01/26/17 04:36 Metamyelocytes # 0.0 K/mm3 01/26/17 04:36 Myelocytes # 0.0 K/mm3 01/26/17 04:36 Promyelocytes # 0.0 K/mm3 01/26/17 04:36 Blast Cells # 0.0 K/mm3 01/26/17 04:36 WBC Morphology Not Reportable 01/26/17 04:36 Hypersegmented Neuts Not Reportable 01/26/17 04:36 Hyposegmented Neuts Not Reportable 01/26/17 04:36 Hypogranular Neuts Not Reportable 01/26/17 04:36 Smudge Cells Not Reportable 01/26/17 04:36 Toxic Granulation Not Reportable 01/26/17 04:36 Toxic Vacuolation Not Reportable 01/26/17 04:36 Dohle Bodies Not Reportable 01/26/17 04:36 Pelger-Huet Anomaly Not Reportable 01/26/17 04:36 Ferny Rods Not Reportable 01/26/17 04:36 Platelet Estimate Appears decreased 01/26/17 04:36 Clumped Platelets Not Reportable 01/26/17 04:36 Plt Clumps, EDTA Not Reportable 01/26/17 04:36 Large Platelets Not Reportable 01/26/17 04:36 Giant Platelets Not Reportable 01/26/17 04:36 Platelet Satelliting Not Reportable 01/26/17 04:36 Plt Morphology Comment Not Reportable 01/26/17 04:36 RBC Morphology Not Reportable 01/26/17 04:36 Dimorphic RBCs Not Reportable 01/26/17 04:36 Polychromasia Few 01/26/17 04:36 Hypochromasia Not Reportable 01/26/17 04:36 Poikilocytosis Not Reportable 01/26/17 04:36 Anisocytosis Not Reportable 01/26/17 04:36 Microcytosis Not Reportable 01/26/17 04:36 Macrocytosis Not Reportable 01/26/17 04:36 Spherocytes Not Reportable 01/26/17 04:36 Pappenheimer Bodies Not Reportable 01/26/17 04:36 Sickle Cells 3+ 01/26/17 04:36 Target Cells 1+ 01/26/17 04:36 Tear Drop Cells Not Reportable 01/26/17 04:36 Ovalocytes Not Reportable 01/26/17 04:36 Stomatocytes Few 01/26/17 04:36 Helmet Cells Not Reportable 01/26/17 04:36 [place]oz[place] Bodies Not Reportable 01/26/17 04:36 [place] Rings Not Reportable 01/26/17 04:36 [place] Cells Not Reportable 01/26/17 04:36 Bite Cells Not Reportable 01/26/17 04:36 Crenated Cell Not Reportable 01/26/17 04:36 Elliptocytes Not Reportable 01/26/17 04:36 Acanthocytes (Spur) Not Reportable 01/26/17 04:36 Rouleaux Not Reportable 01/26/17 04:36 Hemoglobin C Crystals Not Reportable 01/26/17 04:36 Schistocytes Not Reportable 01/26/17 04:36 Malaria parasites Not Reportable 01/26/17 04:36 Percent Retic 8.77 % (0.78-2.58) H 01/27/17 01:57 Gian Bodies Not Reportable 01/26/17 04:36 Hem Pathologist Commnt No 01/26/17 04:36 D-Dimer 1344.10 ng/mlDDU (0-234) H 01/25/17 07:22 Sodium 137 mmol/L (137-145) 01/27/17 01:53 Potassium 4.3 mmol/L (3.6-5.0) 01/27/17 01:53 Chloride 97.1 mmol/L (98-107) L 01/27/17 01:53 Carbon Dioxide 24 mmol/L (22-30) 01/27/17 01:53 Anion Gap 20 mmol/L 01/27/17 01:53 BUN 8 mg/dL (9-20) L 01/27/17 01:53 Creatinine 0.6 mg/dL (0.8-1.5) L 01/27/17 01:53 Estimated GFR > 60 ml/min 01/27/17 01:53 BUN/Creatinine Ratio 13.33 % 01/27/17 01:53 Glucose 97 mg/dL (75-100) 01/27/17 01:53 Calcium 8.9 mg/dL (8.4-10.2) 01/27/17 01:53 Troponin T < 0.010 ng/mL (0.00-0.029) 01/25/17 13:32
[2017-01-27] MEDS: ROXICODONE PO PRN (16:30)
[2017-01-28] MEDS: DILAUDID IV PRN ×6 (00:01→22:47)
[2017-01-28] MEDS: ROXICODONE PO PRN ×2 (06:32→13:19)
[2017-01-28] MEDS: D5NS 0.2% 1,000 ML IV SCH ×3 (06:34→22:48)
[2017-01-28 07:17] LABS: Basophils % (Auto) 0.2 % (0.0-1.8); Hemoglobin 7.6 gm/dl (11.8-15.2); Mean Corpuscular HGB Conc 36 % (32-34); Mean Corpuscular Hemoglobin 31 pg (28-32); Mean Corpuscular Volume 87 fl (84-94); Platelet Count 216 K/mm3 (140-440); Red Blood Count 2.43 M/mm3 (3.65-5.03); Reticulocyte % 6.89 % (0.78-2.58); White Blood Count 12.8 K/mm3 (4.5-11.0)
[2017-01-28 07:18] LABS: Red Cell Distribution Width 22.6 % (13.2-15.2)
[2017-01-28 07:37] LABS: Anion Gap 16 mmol/L; Blood Urea Nitrogen 10 mg/dL (9-20); Carbon Dioxide 26 mmol/L (22-30); Chloride 96.9 mmol/L (98-107); Glucose 96 mg/dL (75-100); Sodium 134 mmol/L (137-145)
--- NOTE | 2017-01-28 08:20 | Progress Note ---
Assessment and Plan Assessment and plan: 26M who presented with sickle cell pain crisis 1. Sickle cell pain crisis pain meds, analgesics, hematology consult appreciated, serial cbc CTA on 01/25 neg for PE Chest imaging negative for infiltrate so therefore not consistent with acute chest syndrome 2. Acute hypoxic respiratory failure Most likely due to shallow breathing due to pain, continue oxygen supplementation 3. Hemolytic anemia Monitor hemoglobin, judicious transfusion as needed 4. Hemolytic prophylaxis Lovenox History Interval history: body pains are slightly improved, c/o pain in chest, back, cw pain crisis, 8/10 , worse with movement and deep breathing Hospitalist Physical - Physical exam Narrative exam: General: Nontoxic appearance HEENT: MMM, EOMI cardiac: S1-S2 heard lungs: clear to auscultation, abdomen: soft, nontender, nondistended bowel sounds positive extremities: no edema clubbing or cyanosis Skin: no rash or lesion Neuro: no focal deficit Psych: appropriate behavior and mood, cognition intact - Constitutional Vitals: Temp Pulse Resp BP Pulse Ox 98.6 F 78 20 131/61 97 01/28/17 04:01 01/28/17 08:10 01/28/17 08:10 01/28/17 04:01 01/28/17 08:10 General appearance: Present: mild distress, well-nourished Results - Labs CBC & Chem 7: 01/28/17 06:13 01/28/17 06:13 Labs: Laboratory Last Values WBC 12.8 K/mm3 (4.5-11.0) H 01/28/17 06:13 RBC 2.43 M/mm3 (3.65-5.03) L 01/28/17 06:13 Hgb 7.6 gm/dl (11.8-15.2) L 01/28/17 06:13 Hct 21.0 % (35.5-45.6) L 01/28/17 06:13 MCV 87 fl (84-94) D 01/28/17 06:13 MCH 31 pg (28-32) 01/28/17 06:13 MCHC 36 % (32-34) H 01/28/17 06:13 RDW 22.6 % (13.2-15.2) H 01/28/17 06:13 Plt Count 216 K/mm3 (140-440) 01/28/17 06:13 Lymph % (Auto) 17.4 % (13.4-35.0) 01/28/17 06:13 [place] % (Auto) 12.9 % (0.0-7.3) H 01/28/17 06:13 Eos % (Auto) 1.0 % (0.0-4.3) 01/28/17 06:13 Baso % (Auto) 0.2 % (0.0-1.8) 01/28/17 06:13 Lymph # 2.2 K/mm3 (1.2-5.4) 01/28/17 06:13 [place] # 1.7 K/mm3 (0.0-0.8) H 01/28/17 06:13 Eos # 0.1 K/mm3 (0.0-0.4) 01/28/17 06:13 Baso # 0.0 K/mm3 (0.0-0.1) 01/28/17 06:13 Add Manual Diff Complete 01/26/17 04:36 Total Counted 100 01/26/17 04:36 Seg Neutrophils % 68.5 % (40.0-70.0) 01/28/17 06:13 Seg Neuts % (Manual) 64.0 % (40.0-70.0) 01/26/17 04:36 Band Neutrophils % 0 % 01/26/17 04:36 Lymphocytes % (Manual) 23.0 % (13.4-35.0) 01/26/17 04:36 Reactive Lymphs % (Man) 0 % 01/26/17 04:36 Monocytes % (Manual) 9.0 % (0.0-7.3) H 01/26/17 04:36 Eosinophils % (Manual) 4.0 % (0.0-4.3) 01/26/17 04:36 Basophils % (Manual) 0 % (0.0-1.8) 01/26/17 04:36 Metamyelocytes % 0 % 01/26/17 04:36 Myelocytes % 0 % 01/26/17 04:36 Promyelocytes % 0 % 01/26/17 04:36 Blast Cells % 0 % 01/26/17 04:36 Nucleated RBC % 2.0 % (0.0-0.9) H 01/26/17 04:36 Seg Neutrophils # 8.8 K/mm3 (1.8-7.7) H 01/28/17 06:13 Seg Neutrophils # Man 6.7 K/mm3 (1.8-7.7) 01/26/17 04:36 Band Neutrophils # 0.0 K/mm3 01/26/17 04:36 Lymphocytes # (Manual) 2.4 K/mm3 (1.2-5.4) 01/26/17 04:36 Abs React Lymphs (Man) 0.0 K/mm3 01/26/17 04:36 Monocytes # (Manual) 0.9 K/mm3 (0.0-0.8) H 01/26/17 04:36 Eosinophils # (Manual) 0.4 K/mm3 (0.0-0.4) 01/26/17 04:36 Basophils # (Manual) 0.0 K/mm3 (0.0-0.1) 01/26/17 04:36 Metamyelocytes # 0.0 K/mm3 01/26/17 04:36 Myelocytes # 0.0 K/mm3 01/26/17 04:36 Promyelocytes # 0.0 K/mm3 01/26/17 04:36 Blast Cells # 0.0 K/mm3 01/26/17 04:36 WBC Morphology Not Reportable 01/26/17 04:36 Hypersegmented Neuts Not Reportable 01/26/17 04:36 Hyposegmented Neuts Not Reportable 01/26/17 04:36 Hypogranular Neuts Not Reportable 01/26/17 04:36 Smudge Cells Not Reportable 01/26/17 04:36 Toxic Granulation Not Reportable 01/26/17 04:36 Toxic Vacuolation Not Reportable 01/26/17 04:36 Dohle Bodies Not Reportable 01/26/17 04:36 Pelger-Huet Anomaly Not Reportable 01/26/17 04:36 Ferny Rods Not Reportable 01/26/17 04:36 Platelet Estimate Appears decreased 01/26/17 04:36 Clumped Platelets Not Reportable 01/26/17 04:36 Plt Clumps, EDTA Not Reportable 01/26/17 04:36 Large Platelets Not Reportable 01/26/17 04:36 Giant Platelets Not Reportable 01/26/17 04:36 Platelet Satelliting Not Reportable 01/26/17 04:36 Plt Morphology Comment Not Reportable 01/26/17 04:36 RBC Morphology Not Reportable 01/26/17 04:36 Dimorphic RBCs Not Reportable 01/26/17 04:36 Polychromasia Few 01/26/17 04:36 Hypochromasia Not Reportable 01/26/17 04:36 Poikilocytosis Not Reportable 01/26/17 04:36 Anisocytosis Not Reportable 01/26/17 04:36 Microcytosis Not Reportable 01/26/17 04:36 Macrocytosis Not Reportable 01/26/17 04:36 Spherocytes Not Reportable 01/26/17 04:36 Pappenheimer Bodies Not Reportable 01/26/17 04:36 Sickle Cells 3+ 01/26/17 04:36 Target Cells 1+ 01/26/17 04:36 Tear Drop Cells Not Reportable 01/26/17 04:36 Ovalocytes Not Reportable 01/26/17 04:36 Stomatocytes Few 01/26/17 04:36 Helmet Cells Not Reportable 01/26/17 04:36 [place]oz[place] Bodies Not Reportable 01/26/17 04:36 [place] Rings Not Reportable 01/26/17 04:36 [place] Cells Not Reportable 01/26/17 04:36 Bite Cells Not Reportable 01/26/17 04:36 Crenated Cell Not Reportable 01/26/17 04:36 Elliptocytes Not Reportable 01/26/17 04:36 Acanthocytes (Spur) Not Reportable 01/26/17 04:36 Rouleaux Not Reportable 01/26/17 04:36 Hemoglobin C Crystals Not Reportable 01/26/17 04:36 Schistocytes Not Reportable 01/26/17 04:36 Malaria parasites Not Reportable 01/26/17 04:36 Percent Retic 6.89 % (0.78-2.58) H 01/28/17 06:13 Gian Bodies Not Reportable 01/26/17 04:36 Hem Pathologist Commnt No 01/26/17 04:36 D-Dimer 1344.10 ng/mlDDU (0-234) H 01/25/17 07:22 Sodium 134 mmol/L (137-145) L 01/28/17 06:13 Potassium 5.0 mmol/L (3.6-5.0) 01/28/17 06:13 Chloride 96.9 mmol/L (98-107) L 01/28/17 06:13 Carbon Dioxide 26 mmol/L (22-30) 01/28/17 06:13 Anion Gap 16 mmol/L 01/28/17 06:13 BUN 10 mg/dL (9-20) 01/28/17 06:13 Creatinine 0.5 mg/dL (0.8-1.5) L 01/28/17 06:13 Estimated GFR > 60 ml/min 01/28/17 06:13 BUN/Creatinine Ratio 20.00 % 01/28/17 06:13 Glucose 96 mg/dL (75-100) 01/28/17 06:13 Calcium 9.0 mg/dL (8.4-10.2) 01/28/17 06:13 Troponin T < 0.010 ng/mL (0.00-0.029) 01/25/17 13:32
[2017-01-28] MEDS: LOVENOX SUB-Q SCH (09:16)
--- NOTE | 2017-01-28 15:59 | Consultation ---
History of Present Illness - Reason for Consult Consult date: 01/28/17 - History of Present Illness Patients report reviewed, including labs., and notes.No new issues at this time. Past History Past Medical History: other (sickle cell disease, hx of acute chest syndrome in 04/2016) Past Surgical History: No surgical history Social history: no significant social history Family history: other (sickle cell trait) Medications and Allergies Allergies Allergy/AdvReac Type Severity Reaction Status Date / Time No Known Allergies Allergy Verified 08/20/15 06:08 Home Medications Medication Instructions Recorded Confirmed Last Taken Type Ibuprofen [Motrin 800 MG tab] 800 mg PO TID PRN 07/14/13 01/25/17 08/19/15 History Folic Acid [Folvite] 1 mg PO QDAY #30 tablet 04/30/16 01/25/17 1 Day Ago Rx Active Meds: Active Medications Acetaminophen (Tylenol) 650 mg PO Q4H PRN PRN Reason: Pain MILD(1-3)/Fever >100.5/GERMAN Last Admin: 01/26/17 01:42 Dose: 650 mg Bisacodyl (Dulcolax) 10 mg MD QDAY PRN PRN Reason: Constipation unrelieved by MOM Diphenhydramine HCl (Benadryl) 25 mg PO Q6H PRN PRN Reason: Itching Last Admin: 01/27/17 23:54 Dose: 25 mg Enoxaparin Sodium (Lovenox) 40 mg SUB-Q QDAY HAN Last Admin: 01/28/17 09:16 Dose: 40 mg Hydromorphone HCl (Dilaudid) 2 mg IV Q3H PRN PRN Reason: Pain , Severe (7-10) Last Admin: 01/28/17 09:16 Dose: 2 mg Dextrose/Sodium Chloride (D5ns 0.2%) 1,000 mls @ 150 mls/hr IV DIRECT HAN Last Admin: 01/28/17 14:45 Dose: 150 mls/hr Magnesium Hydroxide (Milk Of Magnesia) 30 ml PO Q4H PRN PRN Reason: Constipation Ondansetron HCl (Zofran) 4 mg IV Q8H PRN PRN Reason: N/V unrelieved by Reglan Oxycodone HCl (Roxicodone) 10 mg PO Q6H PRN PRN Reason: Pain, Moderate (4-6) Last Admin: 01/28/17 13:19 Dose: 10 mg Exam - Constitutional Vitals: Temp Pulse Resp BP Pulse Ox 98.6 F 78 20 124/56 97 01/28/17 08:00 01/28/17 08:10 01/28/17 14:19 01/28/17 08:00 01/28/17 08:10 Results - Labs CBC & Chem 7: 01/28/17 06:13 01/28/17 06:13 Labs: Abnormal lab results 01/28/17 01/28/17 Range/Units 06:13 06:13 WBC 12.8 H (4.5-11.0) K/mm3 RBC 2.43 L (3.65-5.03) M/mm3 Hgb 7.6 L (11.8-15.2) gm/dl Hct 21.0 L (35.5-45.6) % MCHC 36 H (32-34) % RDW 22.6 H (13.2-15.2) % [place] % (Auto) 12.9 H (0.0-7.3) % [place] # 1.7 H (0.0-0.8) K/mm3 Seg Neutrophils # 8.8 H (1.8-7.7) K/mm3 Percent Retic 6.89 H (0.78-2.58) % Sodium 134 L (137-145) mmol/L Chloride 96.9 L (98-107) mmol/L Creatinine 0.5 L (0.8-1.5) mg/dL Assessment and Plan - Patient Problems (1) Sickle cell pain crisis Current Visit: Yes Status: Chronic Plan to address problem: pain control- same as before (2) Sickle cell anemia Current Visit: Yes Status: Acute Qualifiers: Sickle-cell associated disorders: S Plan to address problem: monitor/adjust labs.
[2017-01-29 01:24] LABS: Basophils % (Auto) 0.3 % (0.0-1.8); Eosinophils % (Auto) 0.9 % (0.0-4.3); Hemoglobin 7.1 gm/dl (11.8-15.2); Mean Corpuscular HGB Conc 37 % (32-34); Mean Corpuscular Hemoglobin 31 pg (28-32); Mean Corpuscular Volume 85 fl (84-94); Platelet Count 233 K/mm3 (140-440); Red Blood Count 2.25 M/mm3 (3.65-5.03); Reticulocyte % 6.28 % (0.78-2.58); White Blood Count 17.1 K/mm3 (4.5-11.0)
[2017-01-29 01:34] LABS: Anion Gap 20 mmol/L; BUN/Creatinine Ratio 23.33; Blood Urea Nitrogen 14 mg/dL (9-20); Calcium 8.6 mg/dL (8.4-10.2); Carbon Dioxide 21 mmol/L (22-30); Chloride 95.3 mmol/L (98-107); Glucose 93 mg/dL (75-100); Potassium 4.7 mmol/L (3.6-5.0); Red Cell Distribution Width 23.7 % (13.2-15.2); Sodium 132 mmol/L (137-145)
[2017-01-29 01:37] LABS: Hematocrit 19.2 % (35.5-45.6)
[2017-01-29] MEDS: DILAUDID IV PRN ×6 (02:59→22:25)
[2017-01-29] MEDS: D5NS 0.2% 1,000 ML IV SCH ×2 (05:56→14:30)
[2017-01-29 08:48] LABS: Basophils % (Auto) 0.4 % (0.0-1.8); Eosinophils % (Auto) 1.1 % (0.0-4.3); Hemoglobin 6.8 gm/dl (11.8-15.2); Mean Corpuscular HGB Conc 36 % (32-34); Mean Corpuscular Hemoglobin 30 pg (28-32); Mean Corpuscular Volume 83 fl (84-94); Platelet Count 244 K/mm3 (140-440); Red Blood Count 2.28 M/mm3 (3.65-5.03); White Blood Count 15.5 K/mm3 (4.5-11.0)
[2017-01-29] MEDS ORDERED: NACL 0.9% 500 ML 500 ML IV ONE (09:45)
--- NOTE | 2017-01-29 09:46 | Progress Note ---
Assessment and Plan Assessment and plan: 26M who presented with sickle cell pain crisis 1. Sickle cell pain crisis pain meds, analgesics, hematology consult appreciated, serial cbc CTA on 01/25 neg for PE Chest imaging negative for infiltrate so therefore not consistent with acute chest syndrome 2. Acute hypoxic respiratory failure Most likely due to shallow breathing due to pain, continue oxygen supplementation 3. Hemolytic anemia transfuse 2 units prbc 4. dvt prophylaxis Lovenox History Interval history: body pains are slightly improved, c/o pain in chest, back, cw pain crisis, 04/07 , worse with movement and deep breathing Hospitalist Physical - Physical exam Narrative exam: General: Nontoxic appearance HEENT: MMM, EOMI cardiac: S1-S2 heard lungs: clear to auscultation, abdomen: soft, nontender, nondistended bowel sounds positive extremities: no edema clubbing or cyanosis Skin: no rash or lesion Neuro: no focal deficit Psych: appropriate behavior and mood, cognition intact - Constitutional Vitals: Temp Pulse Resp BP Pulse Ox 98.8 F 93 H 20 101/48 89 01/29/17 07:32 01/29/17 07:32 01/29/17 07:32 01/29/17 07:32 01/29/17 07:32 General appearance: Present: mild distress, well-nourished Results - Labs CBC & Chem 7: 01/29/17 08:21 01/29/17 00:38 Labs: Laboratory Last Values WBC 15.5 K/mm3 (4.5-11.0) H 01/29/17 08:21 RBC 2.28 M/mm3 (3.65-5.03) L 01/29/17 08:21 Hgb 6.8 gm/dl (11.8-15.2) L 01/29/17 08:21 Hct 19.0 % (35.5-45.6) L* 01/29/17 08:21 MCV 83 fl (84-94) L 01/29/17 08:21 MCH 30 pg (28-32) 01/29/17 08:21 MCHC 36 % (32-34) H 01/29/17 08:21 RDW 24.0 % (13.2-15.2) H 01/29/17 08:21 Plt Count 244 K/mm3 (140-440) 01/29/17 08:21 Lymph % (Auto) 12.5 % (13.4-35.0) L 01/29/17 08:21 [place] % (Auto) 13.1 % (0.0-7.3) H 01/29/17 08:21 Eos % (Auto) 1.1 % (0.0-4.3) 01/29/17 08:21 Baso % (Auto) 0.4 % (0.0-1.8) 01/29/17 08:21 Lymph # 1.9 K/mm3 (1.2-5.4) 01/29/17 08:21 [place] # 2.0 K/mm3 (0.0-0.8) H 01/29/17 08:21 Eos # 0.2 K/mm3 (0.0-0.4) 01/29/17 08:21 Baso # 0.1 K/mm3 (0.0-0.1) 01/29/17 08:21 Add Manual Diff Complete 01/26/17 04:36 Total Counted 100 01/26/17 04:36 Seg Neutrophils % 72.9 % (40.0-70.0) H 01/29/17 08:21 Seg Neuts % (Manual) 64.0 % (40.0-70.0) 01/26/17 04:36 Band Neutrophils % 0 % 01/26/17 04:36 Lymphocytes % (Manual) 23.0 % (13.4-35.0) 01/26/17 04:36 Reactive Lymphs % (Man) 0 % 01/26/17 04:36 Monocytes % (Manual) 9.0 % (0.0-7.3) H 01/26/17 04:36 Eosinophils % (Manual) 4.0 % (0.0-4.3) 01/26/17 04:36 Basophils % (Manual) 0 % (0.0-1.8) 01/26/17 04:36 Metamyelocytes % 0 % 01/26/17 04:36 Myelocytes % 0 % 01/26/17 04:36 Promyelocytes % 0 % 01/26/17 04:36 Blast Cells % 0 % 01/26/17 04:36 Nucleated RBC % 2.0 % (0.0-0.9) H 01/26/17 04:36 Seg Neutrophils # 11.3 K/mm3 (1.8-7.7) H 01/29/17 08:21 Seg Neutrophils # Man 6.7 K/mm3 (1.8-7.7) 01/26/17 04:36 Band Neutrophils # 0.0 K/mm3 01/26/17 04:36 Lymphocytes # (Manual) 2.4 K/mm3 (1.2-5.4) 01/26/17 04:36 Abs React Lymphs (Man) 0.0 K/mm3 01/26/17 04:36 Monocytes # (Manual) 0.9 K/mm3 (0.0-0.8) H 01/26/17 04:36 Eosinophils # (Manual) 0.4 K/mm3 (0.0-0.4) 01/26/17 04:36 Basophils # (Manual) 0.0 K/mm3 (0.0-0.1) 01/26/17 04:36 Metamyelocytes # 0.0 K/mm3 01/26/17 04:36 Myelocytes # 0.0 K/mm3 01/26/17 04:36 Promyelocytes # 0.0 K/mm3 01/26/17 04:36 Blast Cells # 0.0 K/mm3 01/26/17 04:36 WBC Morphology Not Reportable 01/26/17 04:36 Hypersegmented Neuts Not Reportable 01/26/17 04:36 Hyposegmented Neuts Not Reportable 01/26/17 04:36 Hypogranular Neuts Not Reportable 01/26/17 04:36 Smudge Cells Not Reportable 01/26/17 04:36 Toxic Granulation Not Reportable 01/26/17 04:36 Toxic Vacuolation Not Reportable 01/26/17 04:36 Dohle Bodies Not Reportable 01/26/17 04:36 Pelger-Huet Anomaly Not Reportable 01/26/17 04:36 Ferny Rods Not Reportable 01/26/17 04:36 Platelet Estimate Appears decreased 01/26/17 04:36 Clumped Platelets Not Reportable 01/26/17 04:36 Plt Clumps, EDTA Not Reportable 01/26/17 04:36 Large Platelets Not Reportable 01/26/17 04:36 Giant Platelets Not Reportable 01/26/17 04:36 Platelet Satelliting Not Reportable 01/26/17 04:36 Plt Morphology Comment Not Reportable 01/26/17 04:36 RBC Morphology Not Reportable 01/26/17 04:36 Dimorphic RBCs Not Reportable 01/26/17 04:36 Polychromasia Few 01/26/17 04:36 Hypochromasia Not Reportable 01/26/17 04:36 Poikilocytosis Not Reportable 01/26/17 04:36 Anisocytosis Not Reportable 01/26/17 04:36 Microcytosis Not Reportable 01/26/17 04:36 Macrocytosis Not Reportable 01/26/17 04:36 Spherocytes Not Reportable 01/26/17 04:36 Pappenheimer Bodies Not Reportable 01/26/17 04:36 Sickle Cells 3+ 01/26/17 04:36 Target Cells 1+ 01/26/17 04:36 Tear Drop Cells Not Reportable 01/26/17 04:36 Ovalocytes Not Reportable 01/26/17 04:36 Stomatocytes Few 01/26/17 04:36 Helmet Cells Not Reportable 01/26/17 04:36 Lozano-[place] Bodies Not Reportable 01/26/17 04:36 Anthony Rings Not Reportable 01/26/17 04:36 Jennifer Cells Not Reportable 01/26/17 04:36 Bite Cells Not Reportable 01/26/17 04:36 Crenated Cell Not Reportable 01/26/17 04:36 Elliptocytes Not Reportable 01/26/17 04:36 Acanthocytes (Spur) Not Reportable 01/26/17 04:36 Rouleaux Not Reportable 01/26/17 04:36 Hemoglobin C Crystals Not Reportable 01/26/17 04:36 Schistocytes Not Reportable 01/26/17 04:36 Malaria parasites Not Reportable 01/26/17 04:36 Percent Retic 6.28 % (0.78-2.58) H 01/29/17 00:38 Gian Bodies Not Reportable 01/26/17 04:36 Hem Pathologist Commnt No 01/26/17 04:36 D-Dimer 1344.10 ng/mlDDU (0-234) H 01/25/17 07:22 Sodium 132 mmol/L (137-145) L 01/29/17 00:38 Potassium 4.7 mmol/L (3.6-5.0) 01/29/17 00:38 Chloride 95.3 mmol/L (98-107) L 01/29/17 00:38 Carbon Dioxide 21 mmol/L (22-30) L 01/29/17 00:38 Anion Gap 20 mmol/L 01/29/17 00:38 BUN 14 mg/dL (9-20) 01/29/17 00:38 Creatinine 0.6 mg/dL (0.8-1.5) L 01/29/17 00:38 Estimated GFR > 60 ml/min 01/29/17 00:38 BUN/Creatinine Ratio 23.33 % 01/29/17 00:38 Glucose 93 mg/dL (75-100) 01/29/17 00:38 Calcium 8.6 mg/dL (8.4-10.2) 01/29/17 00:38 Troponin T < 0.010 ng/mL (0.00-0.029) 01/25/17 13:32 Blood Type B POSITIVE 01/29/17 08:22 Antibody Screen TNR 01/29/17 08:22 BHAVIK Antibody Screen Negative 01/29/17 08:22
[2017-01-29] MEDS: LOVENOX SUB-Q SCH (10:28)
[2017-01-29] MEDS ORDERED: NACL 0.9% 250ML 250 ML ONE (21:39)
[2017-01-29] MEDS ORDERED: NACL 0.9% 250ML 250 ML IV ONE (22:10)
[2017-01-30] MEDS: DILAUDID IV PRN ×2 (05:23→09:38)
[2017-01-30] MEDS: D5NS 0.2% 1,000 ML IV SCH (05:23)
[2017-01-30 05:28] LABS: Anion Gap 18 mmol/L; Basophils % (Auto) 0.6 % (0.0-1.8); Blood Urea Nitrogen 15 mg/dL (9-20); Carbon Dioxide 24 mmol/L (22-30); Chloride 100.6 mmol/L (98-107); Glucose 97 mg/dL (75-100); Hematocrit 24.6 % (35.5-45.6); Hemoglobin 8.8 gm/dl (11.8-15.2); Mean Corpuscular HGB Conc 36 % (32-34); Mean Corpuscular Hemoglobin 29 pg (28-32); Mean Corpuscular Volume 80 fl (84-94); Platelet Count 300 K/mm3 (140-440); Potassium 4.8 mmol/L (3.6-5.0); Red Blood Count 3.09 M/mm3 (3.65-5.03); Reticulocyte % 4.45 % (0.78-2.58); Sodium 138 mmol/L (137-145); White Blood Count 11.3 K/mm3 (4.5-11.0)
[2017-01-30 05:37] LABS: Red Cell Distribution Width 24.9 % (13.2-15.2)
[2017-01-30 08:47] VITALS: BP 126/61
[2017-01-30] MEDS: LOVENOX SUB-Q SCH (09:38)
--- NOTE | 2017-01-30 10:23 | Discharge Summary ---
Providers - Providers Date of Admission: 01/25/17 10:33 Attending physician: ARMEN RAMOS MD Primary care physician: JOAQUINA DEMPSEY MD Hospitalization Condition: Stable Hospital course: 26M who presented with sickle cell pain crisis. He had full infectious workup that was negative, he also had a CTA that was negative for PE. He was treated with pain medications and analgesics, he was also seen by hematology. He received blood transfusion, he clinically improved, he was noted to have acute hypoxic respiratory failure, history of supplemental oxygen and weaned to room air prior to discharge. 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 Sickle cell pain crisis 2. Acute hypoxic respiratory failure 3. Hemolytic anemia Disposition: - TO HOME OR SELFCARE Time spent for discharge: 35 minutes Core Measure Documentation - Palliative Care Palliative Care/ Comfort Measures: Not Applicable - Core Measures Any of the following diagnoses?: none Exam - Constitutional Vitals: Temp Pulse Resp BP Pulse Ox 98.1 F 76 18 126/61 99 01/30/17 08:00 01/30/17 08:00 01/30/17 08:00 01/30/17 08:00 01/30/17 08:00 General appearance: Present: no acute distress, well-nourished - EENT Eyes: Present: PERRL ENT: hearing intact, clear oral mucosa - Neck Neck: Present: supple, normal ROM - Respiratory Respiratory effort: normal Respiratory: bilateral: CTA - Cardiovascular Heart Sounds: Present: S1 & S2. Absent: rub, click - Extremities Extremities: pulses symmetrical, No edema Peripheral Pulses: within normal limits - Abdominal General gastrointestinal: Present: soft, non-tender, non-distended, normal bowel sounds Male genitourinary: Present: normal - Integumentary Integumentary: Present: clear, warm, dry - Musculoskeletal Musculoskeletal: gait normal, strength equal bilaterally - Psychiatric Psychiatric: appropriate mood/affect, intact judgment & insight - Neurologic Neurologic: CNII-XII intact, moves all extremities Plan Follow up with: PRIMARY CARE, [Primary Care Provider] - 3-5 Days JONAS DILLON DO [Staff Physician] - 7 Days Prescriptions: Folic Acid [Folvite] 1 mg PO QDAY #30 tablet Ibuprofen [Motrin 800 MG tab] 800 mg PO TID PRN #90 tablet PRN Reason: Pain oxyCODONE [Roxicodone TAB] 10 mg PO Q6H PRN #30 tablet PRN Reason: Pain, Moderate (4-6)
--- NOTE | 2017-01-30 11:14 | Consultation ---
History of Present Illness - Reason for Consult Consult date: 01/30/17 - History of Present Illness Patient resting ok, d/c in plans. No new issues. Past History Past Medical History: other (sickle cell disease, hx of acute chest syndrome in 04/2016) Past Surgical History: No surgical history Social history: no significant social history Family history: other (sickle cell trait) Medications and Allergies Allergies Allergy/AdvReac Type Severity Reaction Status Date / Time No Known Allergies Allergy Verified 08/20/15 06:08 Home Medications Medication Instructions Recorded Confirmed Last Taken Type Folic Acid [Folvite] 1 mg PO QDAY #30 tablet 01/30/17 Unknown Rx Ibuprofen [Motrin 800 MG tab] 800 mg PO TID PRN #90 tablet 01/30/17 Unknown Rx oxyCODONE [Roxicodone TAB] 10 mg PO Q6H PRN #30 tablet 01/30/17 Unknown Rx Active Meds: Active Medications Acetaminophen (Tylenol) 650 mg PO Q4H PRN PRN Reason: Pain MILD(1-3)/Fever >100.5/GERMAN Last Admin: 01/26/17 01:42 Dose: 650 mg Bisacodyl (Dulcolax) 10 mg RI QDAY PRN PRN Reason: Constipation unrelieved by MOM Diphenhydramine HCl (Benadryl) 25 mg PO Q6H PRN PRN Reason: Itching Last Admin: 01/27/17 23:54 Dose: 25 mg Enoxaparin Sodium (Lovenox) 40 mg SUB-Q QDAY HAN Last Admin: 01/30/17 09:38 Dose: 40 mg Hydromorphone HCl (Dilaudid) 2 mg IV Q3H PRN PRN Reason: Pain , Severe (7-10) Last Admin: 01/30/17 09:38 Dose: 2 mg Dextrose/Sodium Chloride (D5ns 0.2%) 1,000 mls @ 150 mls/hr IV DIRECT HAN Last Admin: 01/30/17 05:23 Dose: 150 mls/hr Magnesium Hydroxide (Milk Of Magnesia) 30 ml PO Q4H PRN PRN Reason: Constipation Ondansetron HCl (Zofran) 4 mg IV Q8H PRN PRN Reason: N/V unrelieved by Reglan Oxycodone HCl (Roxicodone) 10 mg PO Q6H PRN PRN Reason: Pain, Moderate (4-6) Last Admin: 01/28/17 13:19 Dose: 10 mg Exam - Constitutional Vitals: Temp Pulse Resp BP Pulse Ox 98.1 F 76 18 126/61 99 01/30/17 08:00 01/30/17 08:00 01/30/17 08:00 01/30/17 08:00 01/30/17 08:00 General appearance: Present: no acute distress, well-nourished - EENT Eyes: Present: PERRL ENT: hearing intact, clear oral mucosa - Neck Neck: Present: supple, normal ROM - Respiratory Respiratory effort: normal Respiratory: bilateral: CTA - Cardiovascular Heart Sounds: Present: S1 & S2. Absent: rub, click - Extremities Extremities: pulses symmetrical, No edema Peripheral Pulses: within normal limits - Abdominal General gastrointestinal: Present: soft, non-tender, non-distended, normal bowel sounds Male genitourinary: Present: deferred - Rectal Rectal Exam: deferred - Integumentary Integumentary: Present: clear, warm, dry - Musculoskeletal Musculoskeletal: gait normal, strength equal bilaterally - Psychiatric Psychiatric: appropriate mood/affect, intact judgment & insight - Neurologic Neurologic: CNII-XII intact, moves all extremities Results - Labs CBC & Chem 7: 01/30/17 04:14 01/30/17 04:14 Labs: Abnormal lab results 01/29/17 01/30/17 01/30/17 Range/Units 08:22 04:14 04:14 WBC 11.3 H (4.5-11.0) K/mm3 RBC 3.09 L (3.65-5.03) M/mm3 Hgb 8.8 L (11.8-15.2) gm/dl Hct 24.6 L (35.5-45.6) % MCV 80 L D (84-94) fl MCHC 36 H (32-34) % RDW 24.9 H (13.2-15.2) % [place] % (Auto) 13.5 H (0.0-7.3) % [place] # 1.5 H (0.0-0.8) K/mm3 Percent Retic 4.45 H (0.78-2.58) % Creatinine 0.5 L (0.8-1.5) mg/dL Crossmatch See Detail Assessment and Plan - Patient Problems (1) Sickle cell pain crisis Current Visit: Yes Status: Chronic Plan to address problem: pain control- same as before (2) Sickle cell anemia Current Visit: Yes Status: Acute Qualifiers: Sickle-cell associated disorders: S Plan to address problem: monitor/adjust labs.
== END 2017-01-30 12:13 | disposition home or self-care (01) | DRG 811 ==
LOC: ED 04:23 → 4A 10:33
PROVIDERS: ADMIT Internal Medicine; ATTEND Internal Medicine
PROC: 30233N1 Transfusion of Nonautologous Red Blood Cells into Peripheral Vein, Percutaneous Approach (ICD-10-PCS; principal; 2017-01-29)
DX: D57.00 Hb-SS disease with crisis, unspecified (principal); J96.01 Acute respiratory failure with hypoxia; I10 Essential (primary) hypertension; M19.90 Unspecified osteoarthritis, unspecified site
CPT/HCPCS: 36415; 71010; 71275; 80048; 84484; 85007; 85025; 85045; 85379; 85660; 86850; 86900; 86901; 86920; 93005; 93010; 94640; 96361; 96374; 96375; 96376; J1170; J1650; J2270; J7050; P9016; Q9967

== ENCOUNTER 2017-05-06 10:00 | Emergency (ER) | payer MEDICAID ==
[2017-05-06] MEDS ORDERED: NACL 0.9% 500 ML 500 ML IV ONE ×2 (10:14→14:22)
[2017-05-06] MEDS ORDERED: MORPHINE IV ONE (10:33)
[2017-05-06] MEDS ORDERED: CLEOCIN 900 MG/50 mL 900 MG/50 ML BAG IV ONE (10:33)
--- NOTE | 2017-05-06 10:35 | Emergency Department Report ---
HPI - General Chief Complaint: Dental/Oral Time Seen by Provider: 05/06/17 10:28 - HPI HPI: This is a 26-year-old male, dropped off to be seen by his sister, with a complaint of infected teeth and possible facial and/or dental abscess. He has left-sided facial swelling. The patient has a known tooth infection for the past 2 weeks and says that he has been going to see his dentist who has just been continuously putting him on antibiotics. He took a course of penicillin VK and then another penicillin-based antibiotic. He went in today, and which she was supposed to have a tooth extraction, but was then told that he would be placed on a third antibiotic and the tooth would not be extracted until the infection is gone. He decided to come into the emergency Department and be seen. He has some trouble completely opening his mouth but denies any trouble swallowing. He denies any known fever, nausea, vomiting. He has a past medical history of asthma and sickle cell disease. 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 - Surgical History Hx Pacemaker: No Hx Internal Defibrillator: No - Social History Smoking Status: Current Some Day Smoker Substance Use Type: Alcohol - Medications Home Medications: Home Medications Medication Instructions Recorded Confirmed Last Taken Type Folic Acid [Folvite] 1 mg PO QDAY #30 tablet 01/30/17 05/06/17 1 Day Ago Rx Ibuprofen [Motrin 800 MG tab] 800 mg PO TID PRN #90 tablet 01/30/17 05/06/17 1 Day Ago Rx ED Review of Systems ROS: Stated complaint: TOOTH INFECTION Other details as noted in HPI Comment: All other systems reviewed and negative Constitutional: denies: chills, weakness Eyes: denies: eye pain, eye discharge, vision change ENT: dental pain. denies: throat pain Respiratory: denies: cough, shortness of breath, wheezing Cardiovascular: denies: chest pain, palpitations Gastrointestinal: denies: abdominal pain, nausea, diarrhea Genitourinary: denies: urgency, dysuria Musculoskeletal: denies: back pain, joint swelling, arthralgia Skin: denies: rash, lesions Neurological: denies: headache, weakness, paresthesias Physical Exam - Physical Exam Vital Signs: Vital Signs 05/06/17 10:05 Temperature 99.8 F H Pulse Rate 103 H Respiratory 18 Rate Blood Pressure 127/69 Physical Exam: GENERAL: The patient is well-developed well-nourished. HENT: Normocephalic. Atraumatic. Patient has moist mucous membranes. There are multiple dental caries and poor dentition seen. Patient has some trismus in which he can only open his mouth about half way secondary to pain. There is left-sided facial swelling that is worse towards the left maxilla that is slightly fluctuant but there is no erythema or warmth. There are no visible or palpable dental abscesses. No drooling. EYES: Extraocular motions are intact. Pupils equal reactive to light bilaterally. NECK: Supple. Trachea is midline. CHEST/LUNGS: Clear to auscultation. There is no respiratory distress noted. HEART/CARDIOVASCULAR: Regular. There is mild tachycardia. There is no gallop rub or murmur. ABDOMEN: Abdomen is soft, nontender. Patient has normal bowel sounds. There is no abdominal distention. SKIN: There is left-sided facial swelling that is worse towards the left maxilla that is slightly fluctuant but there is no erythema or warmth. NEURO: The patient is awake, alert, and oriented. The patient is cooperative. The patient has no focal neurologic deficits. The patient has normal speech. MUSCULOSKELETAL: There is no tenderness or deformity. There is no limitation range of motion. There is no evidence of acute injury. ED Course Vital Signs 05/06/17 10:05 Temperature 99.8 F H Pulse Rate 103 H Respiratory 18 Rate Blood Pressure 127/69 - Consultations Consultation #1: As soon as the CT scan came back showing left pterygoid and masseter muscle abscesses, patient required transfer for oral maxillofacial surgery or ENT. Attempted to transfer the patient to [facility]. We were told that the physician we needed, ENT, just stepped into surgery and we would be notified once the surgery had ended. We called [facility] and were told that it was the same ENT physician at [place] so we did not attempt transfer at that time to [facility]. We spoke to [facility] the [facility] who said that they did in fact have a ENT physician on-call but after about one hour they were unable to get ahold of this physician, Dr. Singh. We then called [facility] and were able to get a acceptiong physician, oral maxillofacial surgery, for an ER to ER transfer. 05/06/17 19:44 ED Medical Decision Making - Lab Data Result diagrams: 05/06/17 10:19 05/06/17 10:19 - EKG Data -: EKG Interpreted by Me EKG shows normal: sinus rhythm, axis, intervals, QRS complexes, ST-T waves ( nonspecific T-wave) Rate: tachycardia (105 beats per minute) - EKG Data When compared to previous EKG there are: previous EKG unavailable Interpretation: other (sinus tachycardia) - Radiology Data Radiology results: report reviewed, image reviewed interpreted by me: Chest x-ray does not show any acute process. There are no pleural effusions, obvious pneumonia and there is no pneumothorax. CT FACIAL BONES WITH CONTRAST INDICATION: Dental, facial abscess. COMPARISON: None similar. FINDINGS: Facial CT performed following IV contrast. 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 Approximately 2 x 0.8 cm left masseter muscle abscess just lateral to the mandible also suspected as on axial image 43. Mild asymmetric left parapharyngeal fat stranding, left facial soft tissue prominence/swelling and subcutaneous stranding. Some dental disease noted, including an approximately 5 mm right mandibular molar periapical cyst and a small radiopaque dental filling. Minimal right maxillary sinus mucosal thickening. Clear remainder imaged anterior paranasal sinuses. Intact facial bones. Approximately 1 cm left submental lymph node, axial image 10, series 3. Few other enlarged lymph nodes adjacent to the submandibular glands also noted, left larger than right and measuring up to 2.7 x 1.1 cm as on axial image 16, series 3. Bilateral jugular chain lymph nodes also noted measuring up to 3 x 1.7 cm on the left, coronal image 66, series 103. Patent major vessels and the airway. Normal eye globes. Normal imaged intracranial appearance. Unremarkable bones. CONCLUSION: 1. Diffuse hypodense enlargement of the left electronic transaction implementer space muscles including the masseter, temporalis muscle and the pterygoids noted with abscesses suspected in the left masseter and lateral pterygoid muscles, as detailed above. 2. Various other findings, including left-sided facial swelling, left greater than right level I and level II cervical lymphadenopathy and slight right maxillary sinus mucosal thickening, amongst others, as described - Medical Decision Making 26-year-old male who has failed 2 outpatient antibiotic courses presents with left facial swelling. Patient has a 21,000 white count and fever showing sepsis assuming there is a source. I assumed that it was going to be the findings of a dental abscess but CT shows a pterygoid and masseter muscle abscesses. He was given IV fluid resuscitation, IV clindamycin, pain control. He also was found to have a hemoglobin of 6.2. I was going to transfuse 1 unit but he has some very specific antibodies that require blood to be obtained from the [facility] and knowing the patient will need transfer I did not want to have the blood come here and then try to get it to the accepting hospital. He has been reevaluated multiple times for multiple hours and has remained stable. He is currently waiting for transportation services to get to [facility]. [facility] contacted about 2 hours ago and they had said 1.5 hour ETA. They have now called back saying there is another hour added to this as a delayed so other transportation services are being contacted. - Differential Diagnosis dental abscess, facial abscess, sepsis, sickle cell anemia Critical Care Time: No Critical care attestation.: If time is entered above; I have spent that time in minutes in the direct care of this critically ill patient, excluding procedure time. ED Disposition Clinical Impression: Sickle cell pain crisis, Facial abscess, Muscle abscess Sickle cell anemia Qualifiers: Sickle-cell associated disorders: with unspecified crisis Qualified Code(s): D57.00 - Hb-SS disease with crisis, unspecified; D57.0 - Hb-SS disease with crisis Sepsis Qualifiers: Sepsis type: sepsis due to unspecified organism Qualified Code(s): A41.9 - Sepsis, unspecified organism Disposition: DC/TX-70 ANOTHER TYPE HLTHCARE Is pt being admited?: No Condition: Fair Referrals: PRIMARY CARE, [Primary Care Provider] - 3-5 Days Time of Disposition: 19:56
[2017-05-06 10:40] LABS: Hemoglobin 6.2 gm/dl (11.8-15.2); Mean Corpuscular HGB Conc 35 % (32-34); Mean Corpuscular Hemoglobin 30 pg (28-32); Mean Corpuscular Volume 86 fl (84-94); Platelet Count 339 K/mm3 (140-440); Red Blood Count 2.06 M/mm3 (3.65-5.03); Reticulocyte % 6.41 % (0.78-2.58)
[2017-05-06 10:47] LABS: White Blood Count 21.4 K/mm3 (4.5-11.0)
[2017-05-06 10:49] LABS: Hematocrit 17.7 % (35.5-45.6); Red Cell Distribution Width 24.7 % (13.2-15.2)
[2017-05-06 10:59] LABS: INR 1.31 (0.87-1.13)
--- NOTE | 2017-05-06 11:03 | XRay Report ---
PORTABLE CHEST INDICATION: Possible sepsis. COMPARISON: 01/25/2017 FINDINGS: Portable, frontal chest radiograph demonstrates stable cardiomediastinal silhouette and prominent markings centrally. No significant pleural effusions or focal consolidation. Intact bones. CONCLUSION: No significant interval change, as described. Thank you for the opportunity to participate in this patient's care.
[2017-05-06 11:28] LABS: Anisocytosis 2+; Basophils % (Manual) 0 % (0.0-1.8); Blastocytes % (Manual) 0 %; Eosinophils % (Manual) 0 % (0.0-4.3); Hypochromasia 1+; Polychromasia Few; Sickle Cells 2+; Target Cells 1+
[2017-05-06 11:29] LABS: Diff Status Complete
[2017-05-06 12:01] LABS: Alanine Aminotransferase 136 units/L (7-56); Albumin 3.3 g/dL (3.9-5); Albumin/Globulin Ratio 0.8 %; Alkaline Phosphatase 114 units/L (35-129); Anion Gap 21 mmol/L; BUN/Creatinine Ratio 21.42; Blood Urea Nitrogen 15 mg/dL (9-20); Calcium 8.8 mg/dL (8.4-10.2); Carbon Dioxide 20 mmol/L (22-30); Chloride 92.6 mmol/L (98-107); Glucose 112 mg/dL (75-100); Potassium 4.9 mmol/L (3.6-5.0); Sodium 129 mmol/L (137-145); Total Protein 7.7 g/dL (6.3-8.2)
[2017-05-06 12:05] LABS: Bacteria,Urine 1+ /HPF (Negative); Bilirubin,Urine NEG (Negative); Blood,Urine SM (Negative); Ketones,Urine NEG (Negative); Leukocyte Esterase,Urine NEG (Negative); Nitrite,Urine NEG (Negative)
--- NOTE | 2017-05-06 14:09 | Cat Scan Report ---
CT FACIAL BONES WITH CONTRAST INDICATION: Dental, facial abscess. COMPARISON: None similar. FINDINGS: Facial CT performed following IV contrast. 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 Approximately 2 x 0.8 cm left masseter muscle abscess just lateral to the mandible also suspected as on axial image 43. Mild asymmetric left parapharyngeal fat stranding, left facial soft tissue prominence/swelling and subcutaneous stranding. Some dental disease noted, including an approximately 5 mm right mandibular molar periapical cyst and a small radiopaque dental filling. Minimal right maxillary sinus mucosal thickening. Clear remainder imaged anterior paranasal sinuses. Intact facial bones. Approximately 1 cm left submental lymph node, axial image 10, series 3. Few other enlarged lymph nodes adjacent to the submandibular glands also noted, left larger than right and measuring up to 2.7 x 1.1 cm as on axial image 16, series 3. Bilateral jugular chain lymph nodes also noted measuring up to 3 x 1.7 cm on the left, coronal image 66, series 103. Patent major vessels and the airway. Normal eye globes. Normal imaged intracranial appearance. Unremarkable bones. CONCLUSION: 1. 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 2. Various other findings, including left-sided facial swelling, left greater than right level I and level II cervical lymphadenopathy and slight right maxillary sinus mucosal thickening, amongst others, as described. Thank you for the opportunity to participate in this patient's care.
[2017-05-06] MEDS ORDERED: DILAUDID IV ONE ×2 (14:25→19:27)
[2017-05-06] MEDS ORDERED: TYLENOL PO ONE (19:26)
[2017-05-06 19:45] VITALS: BP 135/67
== END 2017-05-06 20:38 | disposition other institution (70) ==
LOC: ED 10:00
DX: A41.9 Sepsis, unspecified organism (principal); D57.00 Hb-SS disease with crisis, unspecified; L02.01 Cutaneous abscess of face; I10 Essential (primary) hypertension; F17.200 Nicotine dependence, unspecified, uncomplicated
CPT/HCPCS: 36415; 70487; 71010; 80053; 81001; 82140; 82805; 85007; 85025; 85045; 85610; 86850; 86900; 86901; 87040; 87086; 93005; 93010; 96361; 96365; 96375; 96376; 99285; J1170; J2270; J7040; Q9967

== ENCOUNTER 2017-09-15 07:40 | Emergency (ER) | payer MEDICAID ==
[2017-09-15 07:45] VITALS: BP 143/82
[2017-09-15] MEDS ORDERED: D5NS 0.2% 1,000 ML IV SCH (08:00)
[2017-09-15 08:05] LABS: Hematocrit 23.7 % (35.5-45.6); Hemoglobin 8.8 gm/dl (11.8-15.2); Mean Corpuscular HGB Conc 37 % (32-34); Mean Corpuscular Hemoglobin 34 pg (28-32); Mean Corpuscular Volume 91 fl (84-94); Platelet Count 265 K/mm3 (140-440); Red Blood Count 2.61 M/mm3 (3.65-5.03)
[2017-09-15 08:06] LABS: Red Cell Distribution Width 27.8 % (13.2-15.2)
[2017-09-15 10:39] LABS: Anisocytosis 3+; Basophils % (Manual) 0 % (0.0-1.8); Macrocytosis 1+; Myelocytes # (Manual) 0.1 K/mm3; Total Cells Counted 100
[2017-09-15 10:40] LABS: Pappenheimer Bodies 2+; Platelet Estimate Consistent w Auto; Sickle Cells 2+; Target Cells 2+
== END 2017-09-16 01:00 | disposition left against medical advice (07) ==
LOC: ED 07:40
DX: M79.1 Myalgia (principal); Z53.21 Procedure and treatment not carried out due to patient leaving prior to being seen by health care provider
CPT/HCPCS: 36415; 85007; 85025; 85045

== ENCOUNTER 2021-03-19 12:39 | Outpatient (CLI) | payer MEDICAID | END 2021-03-19 12:40 | disposition home or self-care (01) | LOC: ECHO 12:39 | PROVIDERS: ATTEND Internal Medicine Hematology & Oncology | DX: I08.1 Rheumatic disorders of both mitral and tricuspid valves (principal) | CPT/HCPCS: 93306 ==